=== PATIENT | male | born 1940 | race Caucasian/White ===

== ENCOUNTER 2017-08-17 14:21 | Observation (INO) | payer MEDICARE, OTHER ==
[~2017-08-17] VITALS: Ht 175.3 cm; Wt 96.5 kg
[2017-08-17] VITALS (7 sets, daily range): BP systolic 149–174; BP diastolic 69–88; PULSE 49–65; RESP 16–20; TEMP 97.6–98.5; O2SAT 97–100
[~2017-08-17 14:21] MED LIST: ADVI200T16 PO; AMLO2.5T PO; ATOR10TA PO; BAYE325T3 PO; CALC-131 PO; DIOV320T PO; HYDR12.56 PO; MULT1TAB PO; OMEG5CAP PO; POTA595T2 PO; SYNT50TA PO
--- NOTE | 2017-08-17 14:53 | PD ---
HPI Chief Complaint: Dizziness Time Seen by Provider: 14:33 Travel History International Travel<30 days: No Contact w/Intl Traveler<30days: No Traveled to known affect area: No History of Present Illness HPI 77-year-old male says he had an episode about an hour ago where he had a sudden onset of severe lightheadedness. He said he had a loss of balance and was not able to walk at that time. He still feels a bit lightheaded. He does have a history of intermittent atrial fibrillation. He is on Eliquis twice daily. He had an ablation 5 years ago but apparently still has intermittent atrial fibrillation. He is not having a headache. He does have some trouble with his ears. He sometimes uses hearing aids. He does have a history of hypertension and is on amlodipine. He is also on levothyroxine and Lipitor. There has not been any recent change in his medication. He did not have any chest pain or palpitations. He says that his heart rate during the episode was about 56. He did walk to a neighbor's house to get a ride here and says he was very unsteady and had to take very short steps PFSH Past Medical History Hx Anticoagulant Therapy: Yes (ELIQUIS) Arthritis: Yes (BIG LEFT TOE) Asthma: No Autoimmune Disease: No Blood Disorders: No Anxiety: No Depression: No Heart Rhythm Problems: Yes (ATRIAL FIB) Cancer: No Cardiovascular Problems: Yes (IRREGULAR HEARTBEAT, ) High Cholesterol: Yes Chemotherapy: No Chest Pain: No Congestive Heart Failure: No COPD: No Cerebrovascular Accident: No Diabetes: Yes (PRE) Patient Takes Glucophage: No Diminished Hearing: No Endocrine: No Gastrointestinal Disorders: No GERD: No Glaucoma: No Genitourinary: No Headaches: No Hepatitis: No Hiatal Hernia: No Hypertension: Yes Immune Disorder: No Kidney Stones: No Musculoskeletal: Yes Neurologic: No Psychiatric: No Reproductive: No Respiratory: No Migraines: No Myocardial Infarction: No Radiation Therapy: No Renal Failure: No Seizures: No Sickle Cell Disease: No Sleep Apnea: No Thyroid Disease: Yes Ulcer: No Influenza Vaccination: Yes Past Surgical History Abdominal Surgery: No AICD: No Appendectomy: No Arteriovenous Shunt: No Cardiac Surgery: Yes (ablation) Cholecystectomy: No Ear Surgery: No Endocrine Surgery: No Eye Surgery: Yes (BILATERAL CATARACTS) Genitourinary Surgery: No Gynecologic Surgery: No Insulin Pump: No Joint Replacement: No Oral Surgery: No Pacemaker: No Thoracic Surgery: No Other Surgery: Yes Social History Alcohol Use: Yes (WINE) Tobacco Use: No Substance Use: No Allergies-Medications (Allergen,Severity, Reaction): Coded Allergies: No Known Allergies (Verified Adverse Reaction, Unknown, 08/17/17) Reported Meds & Prescriptions Reported Meds & Active Scripts Active Reported Calcium + D & K (Calcium-Vitamins D & K) 500-1,000-40 Mg-Unit-Mcg Chew 1 Tab CHEW Fish Oil 1000 mg (Spencer-3 Fatty Acids) 300 Mg-1,000 Mg Cap 1 Cap PO DAILY Levothyroxine (Levothyroxine Sodium) 50 Mcg Tab 50 Mcg PO DAILY Atorvastatin (Atorvastatin Calcium) 10 Mg Tab 10 Mg PO HS Valsartan 320 Mg Tab 320 Mg PO DAILY Eliquis (Apixaban) 5 Mg Tab 5 Mg PO BID Hydrochlorothiazide 25 Mg Tab 25 Mg PO DAILY Amlodipine (Amlodipine Besylate) 10 Mg Tab 10 Mg PO DAILY Review of Systems General / Constitutional: No: Fever, Chills Eyes: No: Diploplia HENT: No: Headaches Cardiovascular: Positive: Irregular Rhythm, No: Chest Pain or Discomfort Respiratory: No: Shortness of Breath Gastrointestinal: Positive: Nausea, No: Vomiting Genitourinary: No: Urgency, Frequency Musculoskeletal: No: Myalgias Skin: No Rash Neurologic: Positive: Weakness, Dizziness, No: Syncope Psychiatric: No: Anxiety, Depression Hematologic/Lymphatic: No: Easy Bruising Physical Exam Narrative GENERAL: Well-developed male SKIN: Focused skin assessment warm/dry. HEAD: Atraumatic. Normocephalic. EYES: Pupils equal and round. No scleral icterus. No injection or drainage. ENT: No nasal bleeding or discharge. Mucous membranes pink and moist. NECK: Trachea midline. No JVD. CARDIOVASCULAR: Regular rate and rhythm. No murmur appreciated. RESPIRATORY: No accessory muscle use. Clear to auscultation. Breath sounds equal bilaterally. GASTROINTESTINAL: Abdomen soft, non-tender, nondistended. Hepatic and splenic margins not palpable. MUSCULOSKELETAL: No obvious deformities. No clubbing. No cyanosis. No edema. NEUROLOGICAL: Awake and alert. No obvious cranial nerve deficits. Motor grossly within normal limits. Normal speech. He is left t-handed. Finger to nose is slightly clumsy on the right PSYCHIATRIC: Appropriate mood and affect; insight and judgment normal. Data Data Last Documented VS Vital Signs Date Time Temp Pulse Resp B/P (MAP) Pulse Ox O2 Delivery O2 Flow Rate FiO2 08/17/17 15:22 56 16 153/80 (104) 61 16 158/83 (108) 67 16 174/82 (112) 08/17/17 14:36 97.6 97 Orders Orders Electrocardiogram (08/17/17 14:48) Complete Blood Count With Diff (08/17/17 14:48) Comprehensive Metabolic Panel (08/17/17 14:48) Troponin I (08/17/17 14:48) Magnesium (Mg) (08/17/17 14:48) Mri Brain W/O Contrast (08/17/17 14:48) Orthostatic Vital Signs (08/17/17 14:49) Sodium Chlor 0.9% 1000 Ml Inj (Ns 1000 M (08/17/17 15:26) Labs Laboratory Tests Test 08/17/17 15:10 White Blood Count 4.8 TH/MM3 Red Blood Count 4.43 MIL/MM3 Hemoglobin 13.6 GM/DL Hematocrit 40.3 % Mean Corpuscular Volume 91.0 FL Mean Corpuscular Hemoglobin 30.8 PG Mean Corpuscular Hemoglobin Concent 33.8 % Red Cell Distribution Width 13.1 % Platelet Count 231 TH/MM3 Mean Platelet Volume 7.9 FL Neutrophils (%) (Auto) 59.8 % Lymphocytes (%) (Auto) 27.0 % Monocytes (%) (Auto) 11.2 % Eosinophils (%) (Auto) 1.4 % Basophils (%) (Auto) 0.6 % Neutrophils # (Auto) 2.9 TH/MM3 Lymphocytes # (Auto) 1.3 TH/MM3 Monocytes # (Auto) 0.5 TH/MM3 Eosinophils # (Auto) 0.1 TH/MM3 Basophils # (Auto) 0.0 TH/MM3 CBC Comment DIFF FINAL Differential Comment Blood Urea Nitrogen 18 MG/DL Creatinine 0.96 MG/DL Random Glucose 106 MG/DL Albumin 3.8 GM/DL Calcium Level 9.0 MG/DL Magnesium Level 2.1 MG/DL Aspartate Amino Transf (AST/SGOT) 15 U/L Alanine Aminotransferase (ALT/SGPT) 21 U/L Sodium Level 139 MEQ/L Potassium Level 3.6 MEQ/L Chloride Level 103 MEQ/L Carbon Dioxide Level 31.3 MEQ/L Anion Gap 5 MEQ/L Estimat Glomerular Filtration Rate 76 ML/MIN [facility] Medical Decision Making Medical Screen Exam Complete: Yes Emergency Medical Condition: Yes Medical Record Reviewed: Yes Differential Diagnosis Differential includes vertigo, dysequilibrium, cva Narrative Course Lab work, ekg and mri have been ordered. Dispositon will be determined by oncoming physician. Luis Ludwig MD Aug 17, 2017 14:53
[2017-08-17 15:21] LABS: AUTOMATED NEUTROPHIL # 2.9 TH/MM3 (1.8-7.7); BASOPHIL % 0.6 % (0.0-2.0); EOSINOPHIL # 0.1 TH/MM3 (0-0.4); EOSINOPHIL % 1.4 % (0.0-4.0); HEMATOCRIT 40.3 % (39.0-51.0); HEMOGLOBIN 13.6 GM/DL (13.0-17.0); LYMPHOCYTE # 1.3 TH/MM3 (1.0-4.8); MEAN CORPUSCULAR HEMOGLOBIN 30.8 PG (27.0-34.0); MEAN CORPUSCULAR HGB CONC 33.8 % (32.0-36.0); MEAN PLATELET VOLUME 7.9 FL (7.0-11.0); MONO % 11.2 % (0.0-8.0); MONOCYTE # 0.5 TH/MM3 (0-0.9); NEUT % 59.8 % (16.0-70.0); PLATELET COUNT 231 TH/MM3 (150-450); RED BLOOD COUNT 4.43 MIL/MM3 (4.50-5.90); RED CELL DISTRIBUTION WIDTH 13.1 % (11.6-17.2); WHITE BLOOD COUNT 4.8 TH/MM3 (4.0-11.0)
[2017-08-17] MEDS ORDERED: FISH100020 PO (15:23)
[2017-08-17] MEDS ORDERED: HYDR25TA5 PO (15:23)
[2017-08-17] MEDS ORDERED: APIX5TAB PO (15:23)
[2017-08-17] MEDS ORDERED: LEVO50TA4 PO (15:23)
[2017-08-17] MEDS ORDERED: CALCCHW25 CHEW (15:23)
[2017-08-17] MEDS ORDERED: VALS1TAB70 PO (15:23)
[2017-08-17] MEDS ORDERED: ATOR10TA15 PO (15:23)
[2017-08-17] MEDS ORDERED: AMLO10TA2 PO (15:23)
[2017-08-17 15:25] LABS: CHLORIDE 103 MEQ/L (98-107); SODIUM (NA) 139 MEQ/L (136-145)
--- NOTE | 2017-08-17 15:25 | PD ---
Physical Exam Date Seen by Provider: Aug 17, 2017 Data Data Last Documented VS Vital Signs Date Time Temp Pulse Resp B/P (MAP) Pulse Ox O2 Delivery O2 Flow Rate FiO2 08/17/17 17:39 60 16 149/78 (101) 98 Room Air 08/17/17 14:36 97.6 Orders Orders Electrocardiogram (08/17/17 14:48) Complete Blood Count With Diff (08/17/17 14:48) Comprehensive Metabolic Panel (08/17/17 14:48) Troponin I (08/17/17 14:48) Magnesium (Mg) (08/17/17 14:48) Mri Brain W/O Contrast (08/17/17 14:48) Orthostatic Vital Signs (08/17/17 14:49) Sodium Chlor 0.9% 1000 Ml Inj (Ns 1000 M (08/17/17 15:26) Consult Cardiology (08/17/17 ) Aspirin Chew (Aspirin Chew) (08/17/17 18:00) Admit Order (Ed Use Only) (08/17/17 18:04) Npo After Midnight W/ Po Meds (08/17/17 Dinner) Consult Neurology (08/17/17 ) Labs Laboratory Tests Test 08/17/17 15:10 White Blood Count 4.8 TH/MM3 Red Blood Count 4.43 MIL/MM3 Hemoglobin 13.6 GM/DL Hematocrit 40.3 % Mean Corpuscular Volume 91.0 FL Mean Corpuscular Hemoglobin 30.8 PG Mean Corpuscular Hemoglobin Concent 33.8 % Red Cell Distribution Width 13.1 % Platelet Count 231 TH/MM3 Mean Platelet Volume 7.9 FL Neutrophils (%) (Auto) 59.8 % Lymphocytes (%) (Auto) 27.0 % Monocytes (%) (Auto) 11.2 % Eosinophils (%) (Auto) 1.4 % Basophils (%) (Auto) 0.6 % Neutrophils # (Auto) 2.9 TH/MM3 Lymphocytes # (Auto) 1.3 TH/MM3 Monocytes # (Auto) 0.5 TH/MM3 Eosinophils # (Auto) 0.1 TH/MM3 Basophils # (Auto) 0.0 TH/MM3 CBC Comment DIFF FINAL Differential Comment Blood Urea Nitrogen 18 MG/DL Creatinine 0.96 MG/DL Random Glucose 106 MG/DL Total Protein 7.5 GM/DL Albumin 3.8 GM/DL Calcium Level 9.0 MG/DL Magnesium Level 2.1 MG/DL Alkaline Phosphatase 83 U/L Aspartate Amino Transf (AST/SGOT) 15 U/L Alanine Aminotransferase (ALT/SGPT) 21 U/L Total Bilirubin 0.6 MG/DL Sodium Level 139 MEQ/L Potassium Level 3.6 MEQ/L Chloride Level 103 MEQ/L Carbon Dioxide Level 31.3 MEQ/L Anion Gap 5 MEQ/L Estimat Glomerular Filtration Rate 76 ML/MIN Troponin I 0.12 NG/ML [facility] Medical Record Reviewed: Yes Supervised Visit with PANKAJ: No Interpretation(s) EKG at 1500: Afib at 54bpm, qt/qtc: 526/511, no acute changes Vital Signs Date Time Temp Pulse Resp B/P (MAP) Pulse Ox O2 Delivery O2 Flow Rate FiO2 08/17/17 15:22 56 16 153/80 (104) 61 16 158/83 (108) 67 16 174/82 (112) 08/17/17 14:36 97.6 65 16 159/78 (105) 97 Differential Diagnosis Orthostatic hypotension, vertigo, CVA, electrolyte abnormality Narrative Course I received patient in sign out, please see previous provider's chart for full hpi and work up of patient Patient currently pending MRI of brain Patient is a 77-year-old male with history of hypertension, prediabetes, hypothyroidism, atrial fibrillation currently taking Eliquis, presents the emergency room with complaints of sudden onset lightheadedness. One hour prior to presentation to the emergency room, patient reports that he felt lightheaded , reports that he had gait imbalance and was unable to ambulate due to this. Patient reports that this has never happened in the past. He did note that he his HR was 56 during this event. He still feels lightheaded and dizzy at this time. He does take amlodipine for his hypertension, Lipitor as well as levothyroxine. Patient with no chest pain or shortness of breath, patient currently pending MRI of the brain. Laboratory Tests Test 08/17/17 15:10 White Blood Count 4.8 TH/MM3 (4.0-11.0) Red Blood Count 4.43 MIL/MM3 (4.50-5.90) Hemoglobin 13.6 GM/DL (13.0-17.0) Hematocrit 40.3 % (39.0-51.0) Mean Corpuscular Volume 91.0 FL (80.0-100.0) Mean Corpuscular Hemoglobin 30.8 PG (27.0-34.0) Mean Corpuscular Hemoglobin Concent 33.8 % (32.0-36.0) Red Cell Distribution Width 13.1 % (11.6-17.2) Platelet Count 231 TH/MM3 (150-450) Mean Platelet Volume 7.9 FL (7.0-11.0) Neutrophils (%) (Auto) 59.8 % (16.0-70.0) Lymphocytes (%) (Auto) 27.0 % (9.0-44.0) Monocytes (%) (Auto) 11.2 % (0.0-8.0) Eosinophils (%) (Auto) 1.4 % (0.0-4.0) Basophils (%) (Auto) 0.6 % (0.0-2.0) Neutrophils # (Auto) 2.9 TH/MM3 (1.8-7.7) Lymphocytes # (Auto) 1.3 TH/MM3 (1.0-4.8) Monocytes # (Auto) 0.5 TH/MM3 (0-0.9) Eosinophils # (Auto) 0.1 TH/MM3 (0-0.4) Basophils # (Auto) 0.0 TH/MM3 (0-0.2) CBC Comment DIFF FINAL Differential Comment Blood Urea Nitrogen 18 MG/DL (7-18) Creatinine 0.96 MG/DL (0.60-1.30) Random Glucose 106 MG/DL (74-106) Total Protein 7.5 GM/DL (6.4-8.2) Albumin 3.8 GM/DL (3.4-5.0) Calcium Level 9.0 MG/DL (8.5-10.1) Magnesium Level 2.1 MG/DL (1.5-2.5) Alkaline Phosphatase 83 U/L (45-117) Aspartate Amino Transf (AST/SGOT) 15 U/L (15-37) Alanine Aminotransferase (ALT/SGPT) 21 U/L (12-78) Total Bilirubin 0.6 MG/DL (0.2-1.0) Sodium Level 139 MEQ/L (136-145) Potassium Level 3.6 MEQ/L (3.5-5.1) Chloride Level 103 MEQ/L (98-107) Carbon Dioxide Level 31.3 MEQ/L (21.0-32.0) Anion Gap 5 MEQ/L (5-15) Estimat Glomerular Filtration Rate 76 ML/MIN (>89) Troponin I 0.12 NG/ML (0.02-0.05) Patient's troponin is 0.12 which is elevated -patient will require serial troponins as well as observation to the hospital for this. Case reviewed with Dr. Casey Douglass, requests that I review case with Dr. Coelho , pt's communications intern Case reviewed with Dr. Coelho, will make patient NPO, patient will require neuro consult, will transfer to [facility] for possible cardiac catheterization Diagnosis Primary Impression: Dizziness Additional Impression: NSTEMI (non-ST elevation myocardial infarction) Admitting Information Admitting Physician Requests: Observation Clara García DO Aug 17, 2017 15:25
[2017-08-17] MEDS ORDERED: SODIUM CHLOR 0.9% 1000 ML INJ 1,000 ML IV SCH (15:26)
[2017-08-17 15:32] LABS: ALBUMIN 3.8 GM/DL (3.4-5.0); BICARBONATE 31.3 MEQ/L (21.0-32.0); GLUCOSE,RANDOM 106 MG/DL (74-106); MAGNESIUM 2.1 MG/DL (1.5-2.5)
[2017-08-17 15:33] LABS: BLOOD UREA NITROGEN 18 MG/DL (7-18)
[2017-08-17 15:36] LABS: ALT (GPT) 21 U/L (12-78); AST (GOT) 15 U/L (15-37); CREATININE 0.96 MG/DL (0.60-1.30); GLOMERULAR FILTRATION RATE 76 ML/MIN (>89)
[2017-08-17 15:37] LABS: TOTAL BILIRUBIN ADULT 0.6 MG/DL (0.2-1.0); TOTAL PROTEIN 7.5 GM/DL (6.4-8.2)
[2017-08-17 15:38] LABS: ALKALINE PHOSPHATASE 83 U/L (45-117)
[2017-08-17 15:41] LABS: TROPONIN I 0.12 NG/ML (0.02-0.05)
--- NOTE | 2017-08-17 17:23 | RADRPT ---
EXAM DATE/TIME: 08/17/2017 16:53 [facility] COMPARISON: No previous studies available for comparison. INDICATIONS : CVA. Lightheaded and dizziness with nausea. MEDICAL HISTORY : Hypertension. Atrial fibrillation. SURGICAL HISTORY : Ablation. ENCOUNTER: Initial ACUITY: 1 day PAIN SCORE: 0/10 LOCATION: Head. TECHNIQUE: Multiplanar, multisequence MRI of the brain was performed without contrast. FINDINGS: CEREBRUM: Moderate diffuse or v. The ventricles are normal for degree of atrophy. No evidence of midline shift, mass lesion, hemorrhage or acute infarction. No extraaxial fluid collections are see n. The pituitary gland and suprasellar cistern are normal in configuration. WHITE MATTER: Mild periventricular white matter T2 prolongation. POSTERIOR FOSSA: The cerebellum and brainstem are intact. The 4th ventricle is midline. The cere bellopontine angle is unremarkable. The cerebellar tonsils are normal in position. DIFFUSION IMAGING: No focal areas of restricted diffusion are seen. No evidence of acute infarct ion. EXTRACRANIAL: The visualized portions of the orbits and paranasal sinuses are unremarkable. CONCLUSION: 1. Senescent changes with mild periventricular small vessel ischemic white matter demyelination. 2. No acute abnormality. Specifically, no acute infarction as questioned. Franklyn Duong MD on August 17, 2017 at 17:17 Board Certified Radiologist. This report was verified electronically.
[2017-08-17] MEDS ORDERED: ASPIRIN 81 MG CHEW TAB PO ONE (18:00)
--- NOTE | 2017-08-17 21:03 | HHI.HP ---
HPI Service [facility] Hospitalists Primary Care Physician Gisela Keller MD Admission Diagnosis NSTEMI Chief Complaint: Lightheadedness, unsteady gait Travel History International Travel<30 Days: No Contact w/Intl Traveler <30 Da: No Traveled to Known Affected Are: No History of Present Illness Patient is a 77-year-old male with history of hypertension, prediabetes, hypothyroidism, atrial fibrillation who is currently taking Eliquis, presents the emergency room with complaints of sudden onset lightheadedness. One to 2 hours prior to presentation to the emergency room, patient reports that he felt lightheaded, reports that he had gait imbalance and was unable to ambulate due to this. Patient reports that this has never happened in the past however on further review he has had poor gait/ataxia for over a year. He reports that his gait instability is different than the lightheadedness he felt earlier today. He did note that his HR was 56 during the event earlier today. He does take amlodipine for his hypertension, Lipitor as well as levothyroxine chronically. Denies any recent new medication. Patient with no chest pain or shortness of breath. MRI of the brain done earlier today revealed no acute abnormalities however a troponin was drawn was slightly elevated at 0.12. It is again noted the patient has no chest pain or shortness of breath. 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 He reports that he is back to his baseline and does not feel lightheaded now. He still feels somewhat unsteady with any gait attempted but this is not new. He reportedly has not seen a neurologist regarding his chronic ataxia. Review of Systems Constitutional: COMPLAINS OF: Dizziness, DENIES: Diaphoretic episodes, Fatigue , Fever, Weight gain, Weight loss, Chills, Change in appetite, Night Sweats Endocrine: DENIES: Heat/cold intolerance, Polydipsia, Polyuria, Polyphagia Eyes: DENIES: Blurred vision, Diplopia, Eye inflammation, Eye pain, Vision loss , Photosensitivity, Double Vision Ears, nose, mouth, throat: COMPLAINS OF: Hearing loss, DENIES: Tinnitus, Vertigo, Nasal discharge, Oral lesions, Throat pain, Hoarseness, Ear Pain, Running Nose, Epistaxis, Sinus Pain, Toothache, Odynophagia Respiratory: DENIES: Apneas, Cough, Snoring, Wheezing, Hemoptysis, Sputum production, Shortness of breath Cardiovascular: DENIES: Chest pain, Palpitations, Syncope, Dyspnea on Exertion , PND, Lower Extremity Edema, Orthopnea, Claudication Gastrointestinal: DENIES: Abdominal pain, Black stools, Bloody stools, BRB per rectum, Constipation, Diarrhea, GERD, Nausea, Reflux, Vomiting, Difficulty Swallowing, Anorexia, See HPI Musculoskeletal: COMPLAINS OF: Joint pain Integumentary: DENIES: Abnormal pigmentation, Nail changes, Pruritus, Rash Hematologic/lymphatic: COMPLAINS OF: Bruising, DENIES: Lymphadenopathy Immunologic/allergic: DENIES: Eczema, Urticaria Neurologic: COMPLAINS OF: Abnormal gait, Poor Balance, DENIES: Headache, Localized weakness, Paresthesias, Seizures, Speech Problems, Tremor Psychiatric: COMPLAINS OF: Anxiety, DENIES: Confusion, Mood changes, Depression , Hallucinations, Agitation, Suicidal Ideation, Homicidal Ideation, Delusions, History of Bipolar, History of Schizophrenia Past Family Social History Past Medical History Hypertension Atrial fibrillation Prediabetes Decreased auditory function Past Surgical History Ablation procedure for atrial fibrillation Colonoscopies x2 Reported Medications Calcium + D & K (Calcium-Vitamins D & K) 500-1,000-40 Mg-Unit-Mcg Chew 1 Tab CHEW Fish Oil 1000 mg ([place]-3 Fatty Acids) 300 Mg-1,000 Mg Cap 1 Cap PO DAILY Levothyroxine (Levothyroxine Sodium) 50 Mcg Tab 50 Mcg PO DAILY Atorvastatin (Atorvastatin Calcium) 10 Mg Tab 10 Mg PO HS Valsartan 320 Mg Tab 320 Mg PO DAILY Eliquis (Apixaban) 5 Mg Tab 5 Mg PO BID Hydrochlorothiazide 25 Mg Tab 25 Mg PO DAILY Amlodipine (Amlodipine Besylate) 10 Mg Tab 10 Mg PO DAILY Allergies: Coded Allergies: No Known Allergies (Verified Adverse Reaction, Unknown, 08/17/17) Family History Mother at age 97 Father at age 57 due to complications of gallbladder surgery No known heart disease in the family per his report Social History Lives with his of 34 years Originally from [facility] 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 No tobacco in 40 years; prior to that smoked one half pack per days for 20 years Drinks one glass of wine approximately every other day Denies illicit drug use Physical Exam Vital Signs Vital Signs Date Time Temp Pulse Resp B/P (MAP) Pulse Ox O2 Delivery O2 Flow Rate FiO2 08/17/17 17:39 60 16 149/78 (101) 98 Room Air 08/17/17 16:24 58 18 151/71 (97) 97 Room Air 08/17/17 15:48 60 18 153/88 (109) 97 Room Air 08/17/17 15:22 56 16 153/80 (104) 61 16 158/83 (108) 67 16 174/82 (112) 08/17/17 14:36 97.6 65 16 159/78 (105) 97 Physical Exam GENERAL: This is a well-nourished, well-developed patient, in no apparent distress. Appears younger than his stated age. Athletic build. SKIN: A few small areas of purpura on forearms. Cool and dry. HEAD: Atraumatic. Normocephalic. No temporal or scalp tenderness. EYES: Pupils equal round and reactive. Extraocular motions intact. No scleral icterus. No injection or drainage. ENT: Nose without bleeding, purulent drainage or septal hematoma. Airway patent. NECK: Trachea midline. No JVD or lymphadenopathy. Supple, nontender, no meningeal signs. CARDIOVASCULAR: Regular rate and rhythm without murmurs, gallops, or rubs. Borderline bradycardic with rate in upper 50s to low 60s. RESPIRATORY: Clear to auscultation. Breath sounds equal bilaterally. No wheezes , rales, or rhonchi. GASTROINTESTINAL: Abdomen soft, non-tender, nondistended. No hepato-splenomegaly , or palpable masses. No guarding. MUSCULOSKELETAL: Extremities without clubbing, cyanosis, or edema. No joint tenderness, effusion, or edema noted. No calf tenderness. NEUROLOGICAL: Awake and alert. Cranial nerves II through XII intact. Motor and sensory grossly within normal limits. Five out of 5 muscle strength in all muscle groups. Normal speech. Did not attempt to walk patient in the ER due to his report of prolonged ataxia. Laboratory Laboratory Tests Test 08/17/17 15:10 White Blood Count 4.8 Red Blood Count 4.43 Hemoglobin 13.6 Hematocrit 40.3 Mean Corpuscular Volume 91.0 Mean Corpuscular Hemoglobin 30.8 Mean Corpuscular Hemoglobin Concent 33.8 Red Cell Distribution Width 13.1 Platelet Count 231 Mean Platelet Volume 7.9 Neutrophils (%) (Auto) 59.8 Lymphocytes (%) (Auto) 27.0 Monocytes (%) (Auto) 11.2 Eosinophils (%) (Auto) 1.4 Basophils (%) (Auto) 0.6 Neutrophils # (Auto) 2.9 Lymphocytes # (Auto) 1.3 Monocytes # (Auto) 0.5 Eosinophils # (Auto) 0.1 Basophils # (Auto) 0.0 CBC Comment DIFF FINAL Differential Comment Blood Urea Nitrogen 18 Creatinine 0.96 Random Glucose 106 Total Protein 7.5 Albumin 3.8 Calcium Level 9.0 Magnesium Level 2.1 Alkaline Phosphatase 83 Aspartate Amino Transf (AST/SGOT) 15 Alanine Aminotransferase (ALT/SGPT) 21 Total Bilirubin 0.6 Sodium Level 139 Potassium Level 3.6 Chloride Level 103 Carbon Dioxide Level 31.3 Anion Gap 5 Estimat Glomerular Filtration Rate 76 Troponin I 0.12 Result Diagram: 08/17/17 1510 08/17/17 1510 Imaging Last 72 hours Impressions Brain MRI 08/17/17 1448 Signed Impressions: Service Date/Time: August 16:53 - CONCLUSION: 1. Senescent changes with mild periventricular small vessel ischemic white matter demyelination. 2. No acute abnormality. Specifically, no acute infarction as questioned. MD Butch Curiel VTE Risk Assessment Caprini VTE Risk Assessment: Mod/High Risk (score >= 2) Caprini Risk Assessment Model Point Value = 1 Point Value = 2 Point Value = 3 Point Value = 5 Age 41-60 Minor surgery BMI > 25 kg/m2 Swollen legs Varicose veins or History of unexplained or recurrent spontaneous Oral contraceptives or hormone replacement Sepsis (< 1 month) Serious lung disease, including pneumonia (< 1 month) Abnormal pulmonary function Acute myocardial infarction Congestive heart failure (< 1 month) History of inflammatory bowel disease Medical patient at bed rest Age 61-74 Arthroscopic surgery Major open surgery (> 45 min) Laparoscopic surgery (> 45 min) Malignancy Confined to bed (> 72 hours) Immobilizing plaster cast Central venous access Age >= 75 History of VTE Family history of VTE Factor V Leiden Prothrombin [id number] Lupus anticoagulant Anticardiolipin antibodies Elevated serum homocysteine Heparin-induced thrombocytopenia Other congenital or acquired thrombophilia Stroke (< 1 month) Elective arthroplasty Hip, pelvis, or leg fracture Acute spinal cord injury (< 1 month) Prophylaxis Regimen Total Risk Factor Score Risk Level Prophylaxis Regimen 0-1 Low Early ambulation 2 Moderate Order ONE of the following: *Sequential Compression Device (SCD) *Heparin 5000 units SQ BID 3-4 Higher Order ONE of the following medications: *Heparin 5000 units SQ TID *Enoxaparin/Lovenox 40 mg SQ daily (WT < 150 kg, CrCl > 30 mL/min) *Enoxaparin/Lovenox 30 mg SQ daily (WT < 150 kg, CrCl > 10-29 mL/min) *Enoxaparin/Lovenox 30 mg SQ BID (WT < 150 kg, CrCl > 30 mL/min) AND/OR *Sequential Compression Device (SCD) 5 or more Highest Order ONE of the following medications: *Heparin 5000 units SQ TID (Preferred with Epidurals) *Enoxaparin/Lovenox 40 mg SQ daily (WT < 150 kg, CrCl > 30 mL/min) *Enoxaparin/Lovenox 30 mg SQ daily (WT < 150 kg, CrCl > 10-29 mL/min) *Enoxaparin/Lovenox 30 mg SQ BID (WT < 150 kg, CrCl > 30 mL/min) AND *Sequential Compression Device (SCD) Assessment and Plan Problem List: (1) Elevated troponin I level ICD Codes: R74.8 - Abnormal levels of other serum enzymes Status: Acute Plan: Questionable etiology. No specific cardiac complaints. We will continue serial troponins and CK as well as EKGs. Patient's wood preparation supervisor has been consulted and case was discussed with Dr. Beck Coelho by ER provider per her report. Dr. Coelho requests patient be transferred to [facility] for possible intervention in the next 24-36 hours. (2) Ataxia ICD Codes: R27.0 - Ataxia, unspecified Status: Chronic Plan: Patient's lightheadedness today is different than his chronic ataxia per his report. We will check ultrasound regarding his lightheadedness which may have been associated with bradycardia. We will have neurology see the patient regarding the chronic ataxic complaints. (3) Hypertension ICD Codes: I10 - Essential (primary) hypertension Status: Chronic Plan: Continue valsartan. BP slightly elevated. We will continue to follow. (4) Atrial fibrillation ICD Codes: I48.91 - Unspecified atrial fibrillation Plan: We will hold Eliquis for now in case vascular intervention indicated. Rate is controlled. Dr. Beck Coelho consulted. (5) Prediabetes ICD Codes: R73.03 - Prediabetes Status: Chronic Plan: Will place on diabetic diet once patient taking oral intake. Patient reports that his blood sugars are typically in the low 100s-120s range. Code Status full Discussed Condition With Patient and ER provider. Problem Qualifiers (1) Hypertension: Qualified Codes: I10 - Essential (primary) hypertension (2) Atrial fibrillation: Qualified Codes: I48.0 - Paroxysmal atrial fibrillation Kristian Rubio MD PhD Aug 17, 2017 21:03
--- NOTE | 2017-08-17 22:36 | RADRPT ---
EXAM DATE/TIME: 08/17/2017 22:21 [place] COMPARISON: No previous studies available for comparison. INDICATIONS : Chest discomfort and lightheadedness. MEDICAL HISTORY : Hypertension. Atrial fibrillation. SURGICAL HISTORY : Ablation. ENCOUNTER: Initial ACUITY: 1 day PAIN SCORE: 2/10 LOCATION: Bilateral chest FINDINGS: A single view of the chest demonstrates the lungs to be symmetrically aerated without evidence of mas s, infiltrate or effusion. The heart size is mildly prominent with no perihilar edema. Mild atheroscl erotic calcifications are present in the aorta. Osseous structures are intact. CONCLUSION: Mild cardiomegaly with no acute disease. Shon Reese MD on August 17, 2017 at 22:32 Board Certified Radiologist. This report was verified electronically.
[2017-08-17] MEDS: ATORVASTATIN 10 MG TAB PO SCH (23:35)
[2017-08-18] VITALS (20 sets, daily range): BP systolic 143–168; BP diastolic 58–87; PULSE 40–82; RESP 18–20; TEMP 98–98.4; O2SAT 94–98
[2017-08-18 00:04] LABS: TROPONIN I 0.11 NG/ML (0.02-0.05)
[2017-08-18] MEDS: LEVOTHYROXINE SODIUM 50 MCG TAB PO SCH (05:29)
[2017-08-18 06:15] LABS: TROPONIN I 0.11 NG/ML (0.02-0.05)
[2017-08-18] MEDS: SODIUM CHLOR 0.9% 1000 ML INJ 1,000 ML IV SCH ×2 (07:45→15:59)
[2017-08-18] MEDS ORDERED: DIAZEPAM 5 MG TAB PO SCH (07:45)
[2017-08-18] MEDS ORDERED: diphenhydrAMINE HCL 50 MG CAP PO SCH (07:45)
[2017-08-18] MEDS ORDERED: VERAPAMIL HCL 5 MG/2 ML VIAL ONE (08:22)
[2017-08-18] MEDS ORDERED: HEPARIN SODIUM - IV 10,000 UNITS/10 ML VIAL ONE (08:23)
[2017-08-18] MEDS ORDERED: NITROGLYCERIN INJ 5 ML ONE (08:23)
[2017-08-18] MEDS ORDERED: PNEUMOCOCCAL POLYVALENT INJ 25 MCG/0.5 ML SYR IM ONE (09:00)
[2017-08-18] MEDS: VALSARTAN 160 MG TAB PO SCH (09:00)
[2017-08-18] MEDS ORDERED: LIDOCAINE HCL 1% PF 30 ML VIAL ONE (09:19)
[2017-08-18] MEDS ORDERED: MIDAZOLAM HCL 2 MG/2 ML VIAL ONE (09:20)
--- NOTE | 2017-08-18 09:51 | MB ---
cc: Beck Coelho MD DATE: 08/18/2017 REASON FOR CONSULTATION: Evaluation of lightheadedness and nausea. HISTORY OF PRESENT ILLNESS: Alexandr Rodrigez is a 77-year-old man who I have been following in my office. 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 He had an ablation of his atrial fibrillation 10/07/2013. Unfortunately, this did not take and he has gone into permanent atrial fibrillation. He has had a slow ventricular rate, but not slow enough to need a pacemaker prior to now. The patient was counseled to report or present to the hospital if he had any dizziness, lightheadedness or syncope. Heart rates were quite slow enough on his Holter to justify a pacemaker. He has been evaluated for possible ischemic disease as well and had a nuclear stress test 03/08/2017. His ejection fraction was 50-55% and there were no definite stress induced defects. His last echo Doppler was 05/10/2016. He had mild left ventricular hypertrophy with an ejection fraction of 50-55%, a left atrial size of 4.9 cm and mild aortic, mitral and tricuspid regurgitation with a mild degree of aortic valve sclerosis. He has been physically able to exercise. He comes in now with complaints of lightheadedness. He has been noticing lately that occasionally at night he gets a feeling of anxiety. Monday night he had an uncomfortable night, but slept fairly well. morning he did a bunch of errands and came back to his house. He sat down at his piano, when he got up, he was extremely lightheaded. Sitting at his computer, this recurred. He also had nausea. Walking to his bedroom, he felt very, very lightheaded. He has never felt like this before. He laid in bed for a while and had about 5 minutes of nausea. He did not have any chest pain or chest tightness or chest pressure or any typical anginal symptoms, but did have some nausea. He presented to the ER. Troponin is mildly elevated. The dizziness has not recurred since he has been in the hospital, but he has been at bedrest. He has been noted to be bradycardic since admission. On telemetry on multiple occasions, his heart rate has dropped between 30 and 35 beats per minute. He has had no chest pain since being in the hospital. MEDICATIONS PRIOR TO ADMISSION: 1. Amlodipine 10 mg daily. 2. Diovan 320 mg daily. 3. Atorvastatin 10 mg daily. 4. Hydrochlorothiazide 25 mg daily. 5. Potassium supplement daily. 6. Multivitamins. 7. Fish oil. 8. Calcium. 9. He is also on Eliquis 5 mg p.o. twice a day. His last dose of Eliquis was 24 hours ago. ALLERGIES: NONE KNOWN. PAST MEDICAL HISTORY: Includes conduction system disease as described above, hypertensive heart disease, and prediabetes. PAST SURGICAL HISTORY: Includes EP procedures. He has never had a cardiac catheterization before. FAMILY HISTORY: Positive for carotid endarterectomy in his mother. 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 He spent about 2-1/2 years in the [employer]. He smoked from about age 13 to age 33. REVIEW OF SYSTEMS: He has been noticing for at least a year of some reduced equilibrium when he is on his feet. The etiology of this has not been clear. This has been discussed with his primary care doctor, Dr. Keller. PHYSICAL EXAMINATION: GENERAL: This is a robust, well-developed, well-nourished white male who does not appear to be in acute distress. VITAL SIGNS: Charted. As mentioned on telemetry, he gets markedly bradycardic with heart rates into the low 30s. HEENT: Unremarkable. NECK: Shows no JVD, no bruits. CHEST: Clear to auscultation. CARDIAC: Shows a normal PMI. First and second heart sounds are normal. Irregular rate and rhythm. There is a faint 1/6 systolic murmur. ABDOMEN: Soft, nontender, no masses or organomegaly. EXTREMITIES: Reveal no clubbing, cyanosis or edema. Pulses are intact. EKGs are showing atrial fibrillation with right bundle branch block and left anterior fascicular block with bradycardia. Of concern, his troponins are elevated. The first troponin was 0.12, second 0.11, third 1.11. Creatinine is normal at 0.96. TSH is normal at 2.44. B12 level is 473. Hematocrit is 40.3 with a normal white count. His brain MRI showed no acute abnormality. His chest x-ray shows mild cardiomegaly with no acute disease. IMPRESSION: This is a 77-year-old man with a history strongly suggestive of symptomatic bradycardia. His bradycardia is not new. We have known about it for a while. The lightheadedness with near syncope is most likely explained by a slow heart rate. He has also had nausea symptoms and has an elevated troponin. The troponin curve is flat so it is not typical of a non-ST segment elevation myocardial infarction, but it is of concern. Coronary ischemia, particularly right coronary artery ischemia, is often associated with bradycardia. RECOMMENDATIONS: I have had a long discussion with the patient with his on speaker phone. I think primarily he needs a pacemaker for bradycardia. However, with the elevated troponin and the nausea raises some question about a coronary problem in addition to bradycardia. I think the safest and best approach would be to do a diagnostic cardiac catheterization. Because he had Eliquis 24 hours, I would like to do this radially so that would minimize any risk of bleeding. If he has severe coronary disease, then I would address that first before the pacemaker. If his coronary arteries are okay or stable, then I advised going right ahead and proceeding with a VVI pacemaker. He is left handed, so I would plan to put this in his right chest. Informed consent has been obtained for a cardiac catheterization with possible pacemaker, possible intervention. We are proceeding to do this morning. Beck Coelho MD VESejal/NANCY , 09:15 AM , 09:49 AM
[2017-08-18] MEDS ORDERED: LIDOCAINE HCL 2% 50 ML VIAL ONE (10:07)
[2017-08-18] MEDS ORDERED: VANCOMYCIN 500 MG VIAL ONE (10:07)
[2017-08-18] MEDS ORDERED: VANCOMYCIN HCL 1000 MG VIAL ONE (10:07)
[2017-08-18] MEDS ORDERED: SODIUM CHLOR 0.9% 250 ML INJ 250 ML ONE (10:08)
[2017-08-18] MEDS ORDERED: ceFAZolin INJ 1,000 MG VIAL ONE (10:08)
[2017-08-18] MEDS ORDERED: PROPOFOL 200 MG/20 ML AMP ONE (10:12)
--- NOTE | 2017-08-18 10:20 | MA ---
cc: Beck Coelho MD DATE: 08/18/2017 PROCEDURES PERFORMED: 1. Right radial arterial access. 2. Coronary angiography. 3. Left heart catheterization. 4. Left ventriculography. DESCRIPTION OF PROCEDURE: The patient was brought to the cardiac catheterization lab in the fasting state. Using 1% lidocaine for local anesthesia, a Terumo Slender Sheath was easily inserted in the right radial artery. A Aubrey catheter was then used to image the left and right coronary artery. I could not cross the valve with it, so I switched to an angled pigtail catheter and easily crossed the valve for a left heart catheterization and LV-gram. The catheter was removed over the wire. The sheath was removed with a Terumo band placed with no complications. Note that the cocktail that was administered contained nitroglycerin; it did not contain heparin because he has had Eliquis 24 hours ago and it did not contain verapamil because of bradycardia. FINDINGS: I. HEMODYNAMICS: Left ventricular pressure was 161/16 with an end-diastolic pressure of 23. Aortic pressure was 172/91 with a mean of 125. There was no gradient during pullback from the left ventricle to the aorta. II. LEFT VENTRICULOGRAPHY: This was performed with hand injection. Ejection fraction appears to be about 50%. The LV is somewhat under-opacified but adequate. III. CORONARY ANGIOGRAPHY: Coronary circulation is right dominant. All 3 coronary arteries appear large and normal with the exception of a very slight degree of irregularity of the right coronary artery. IMPRESSION: The elevated troponin is not due to coronary ischemia. PLAN: We will proceed with a VVI pacemaker via the right chest. MD RIZWANA Juarez/BRIDGET , 10:05 AM , 10:19 AM
--- NOTE | 2017-08-18 10:35 | CATHPROC ---
[facility] HIS Report Study Information Study Number Admission Scheduled Start Study Start [id number] Aug 17 2017 6:06PM 08/18/2017 Aug 18 2017 9:09AM [place] [facility] Cardiac Catheterization Admit Source Facility Department Emergency department [facility] Physician and Clinical Staff Initial Beck Raymond Metal Technician Rosalva Ellis,DALIA Recorder Essie Jha,BASKETBALL SCOUT TECH2 Scrub Digna Newell,RT(R) TECH2 Procedures Performed Procedure Location (Site) Vessel Name Coronary Angiograms LCA Left Coronary Coronary Angiograms RCA Right Coronary L Heart Cath LV Gram-hand inj. LV LV Ventricle Equipment Time Custom Marine Canvas Fabricator Description Size Mfg Part Number Used/Scraped TRANSDUCER, TRUWAVE [id number] 09:10 BRENNER PETERSON * Used W/STOCKCOCK *[id number] *[id number] 09:10 MALLINCKRODT SYRINGE, ANGIOMAT 150ML 150ML *[id number] Used 2SUB [id number] 09:10 UpTap PACK, CCL CUSTOM * Used *[id number] 09:10 UpTap SUPPORT, ARTERIAL ADULT 94595 *[id number] Used [id number] 09:10 [employer] PACER PEN, SKIN DUAL W/ RULER * Used *[id number] BAND, RADIAL COMPRESSION TR [id number] 10:27 Abcodia 29CM Used LARGE 29 *[id number] BAND, RADIAL COMPRESSION TR [id number] 10:25 [employer] MEDICAL 24CM Used SHORT 24 *[id number] 09:10 Abcodia WIRE, EXCHANGE 260CM 3MMJ 260CM Used *[id number] 09:10 NAMIC MANIFOLD, 4 PORT * Used *[id number] 09:10 NYCOMED OMNIPAQUE, 350 MG, 100ML 100ML [id number] Used [id number] 09:10 [employer] BLANKET,WARM AIR CCL * Used *[id number] 09:10 [employer] JELCO NEEDLE 4056 *[id number] Used CATHETER, FR5 OPTITORQUE [id number] 09:42 [employer] MEDICAL FR 5 Used RADIAL TIG 4.0 *[id number] SHEATH, FR6 TRANSRADIAL [id number] 09:10 TERUM[employer] MEDICAL FR 6 Used SLENDER 10CM *[id number] History: Current Medications Medication Dosage/Unit Route Frequency Last Date/Time Taken Synthroid NORVASC LIPITOR History: Allergies Allergy Reaction No Known Allergies History: Risk Factors Family History of Hypertension Dyslipidemia Previous NH Previous Heart Failure Premature CAD Yes Yes No No No Prior Valve Prior PCI Prior CABG Surgery No No No Cerebrovascular Peripheral Artery Chronic Lung On Dialysis Diabetes Diabetes Therapy Disease Disease Disease No No No No Yes Diet History: Stress Tests Stress or Imaging Studies Performed No History: Arrhythmias Selection Items Atrial fibrillation History: Other Current Smoker Method Quit Packs a Day Years Used Pack Years No Cigarettes 40 Years Ago 1 20 20 Labs Hgb (g/dl) Hct (%) RBC (MIL/MM3) WBC (l/cumm) Platelets (thousands) 11.60-17.00 35.00-51.00 4.00-5.90 4.00-11.00 150.00-450.00 13.6 40.3 4.4 4.8 231 Glucose (mg/dl) BUN (mg/dl) Creatinine (mg/dl) BUN:Creatinine (1:x) 74.00-106.00 7.00-18.00 0.50-1.30 10.00-20.00 106 18 0.9 20 Na (meq/l) K (meq/l) Cl (meq/l) CO2 (mmol/L) Ca (mg/dl) 136.00-145.00 3.50-5.10 98.00-107.00 21.00-32.00 8.50-10.10 139 3.6 103 31.3 9 Troponin I (ng/ml) CPK (u/l) 0.02-0.05 26.00-308.00 0.11 60 Medication Medication Total Dose (Bolus/Oral) Medication Total Dosage/Unit 1% XYLOCAINE 5 mL RADIAL COCKTAIL 5 mL (Bolus) Medications (Bolus/Oral) Medication Time Given Dosage/Unit Administered By Reason 1% XYLOCAINE 08/18/2017 9:34:14 AM 5 mL Beck Coelho 5 mL 1% XYLOCAINE given in lab by Beck Coelho in Right Radial via Subcutaneous. RADIAL COCKTAIL 08/18/2017 9:40:18 AM 5 mL (Bolus) Beck Coelho 5 mL (Bolus) RADIAL COCKTAIL given in lab by Beck Coelho via Radial. Using [Solution Name]. Reason: Ntg 200mcg Medication (Drip) Medication Time Given Dosage/Unit Concentration/Unit Diluent (ml) Solution IV Solutions 08/18/2017 9:16:33 AM 0 mL (IV) 500 NaCl .9 Patient arrived on IV Solutions in Left Antecubital via Peripheral IV. Pump/Drip Flow = 20 ml/hr usin g NaCl .9. IV Solutions 08/18/2017 9:16:35 AM 50 mL (IV) 500 NaCl .9 Patient arrived on IV Solutions in Right Antecubital via Peripheral IV. Pump/Drip Flow using NaCl .9. Initial Case Assessment Cardiovascular HR NIBP Chest Pain 55 160/86 0 Circulatory - Right Pulses Dorsalis Pedis Femoral Radial 2 2 2 Scale (0,1,2,3,4,d) Circulatory - Left Pulses Dorsalis Pedis Femoral Radial 2 2 Scale (0,1,2,3,4,d) Neurological State Oriented to time-place- Alert Moves all extremities person Respiration - General Respiration Rate SpO2 (%) (B/min) 13 99 Final Case Assessment Cardiovascular HR Rhythm Chest Pain 66 afib 0 Neurological State Unresponsive Comment: Patient under general anesthesia will remain on cath table for pm implant Chronological Log Time Study Chronological Log 8:55:51 Patient arrived via Bed. 8:55:52 Patient Name, D.O.B, / Armband Verified By R.N. 8:56:55 Pre-op and post- op instructions given; patient acknowledges understanding of instructions . 9:05:56 Verbal Stimulation=2 Physical Stimulation=2 Airway=2 Respiration=2 TOTAL=8. (0=absent, 1=l imited, 2=present) 9:16:16 Anesthesia at bedside. Assumes care of patient. 9:16:18 Presedation assessment performed by [facility] RN. 9:16:20 Allens test performed on the right radial and ulnar artery. 9:16:24 Patient has been NPO for More than 6Hrs. 9:16:26 Skin Breakdown-none per patient 9:16:28 Disposable Defibrillator Pads Placed On Patient. 9:16:29 Guillermo Prominences Protected 9:16:32 A # 20 IV was noted in the Antecubital (left). Grade = patent 9:16:33 Patient arrived on IV Solutions in Left Antecubital via Peripheral IV. Pump/Drip Flow = 20 m l/hr using NaCl .9. 9:16:34 A # 20 IV was noted in the Antecubital (right). Grade = 0 9:16:35 Patient arrived on IV Solutions in Right Antecubital via Peripheral IV. Pump/Drip Flow using NaCl .9. 9:16:36 History and physical on the chart or being dictated. 9:16:44 HR=72 bpm, LZHI=182/90 mmhg, SpO2=99 %, Resp=16 B/min, Pain=0, Jerome=10, Pike=2 Assessment: Initial Case, HR=55 BPM, AMKI=777/86 mmhg, Chest Pain=0 Right Pulses: Elmer Ped=2, Femoral=2, Radial=2 9:17:27 Left Pulses: Elmer Ped=2, Femoral=2 Neurological: State=Alert, Ox3, FROST Respiration: Resp=13 B/min, SpO2=99 % 9:29:47 Pressure channel 1 zeroed. 9:29:54 Consent signed by the physician and the patient and verified by the [facility] staff. Time Out. Correct patient, correct procedure, correct physician, power injector not used, surgic al team present. Time 9:32:20 Out Concurred by MD and individual staff in procedure. 9:34:12 Case Start 9:34:14 5 mL 1% XYLOCAINE given in lab by Beck Coelho in Right Radial via Subcutaneous. 9:37:49 Access site was Radial Artery. A SHEATH, FR6 TRANSRADIAL SLENDER 10CM FR 6 was advanced into the Fem Art (right) using the Perc utaneous 9:37:50 technique. 9:40:18 5 mL (Bolus) RADIAL COCKTAIL given in lab by Beck Coelho via Radial. Using [Solution Name] . Reason: Ntg 200mcg A CATHETER, FR5 OPTITORQUE RADIAL TIG 4.0 FR 5 was advanced over a wire. OMNIPAQUE, 350 MG, 100M L 100ML 9:41:03 was used for injections. 9:42:45 Reference ECG taken 9:43:32 The LCA was injected and visualized at various angles. OMNIPAQUE, 350 MG, 100ML 100ML used. Recorded Pressure: Ao, HR=59, Condition=Condition 1 9:43:53 (Aorta) Ao 125/61/89 9:45:54 The RCA was injected and visualized at various angles. OMNIPAQUE, 350 MG, 100ML 100ML used. After removing the current catheter a PIGTAIL ANG. INFINITI CATHETER FR 5 was advanced over a WI RE, EXCHANGE 9:47:53 260CM 3MMJ 260CM. Recorded Pressure: LV, HR=58, Condition=Condition 1 9:51:00 (Left Ventricle) LV 164/8/22 9:51:16 The LV was manually injected with 10 cc's and visualized. OMNIPAQUE, 350 MG, 100ML 100ML use d. Recorded Pressure: LV, Ao, HR=59, Condition=Condition 1 9:51:30 (Left Ventricle) LV 161/16/23, (Aorta) Ao 172/91/125 9:52:32 Catheter was removed 9:52:41 Case End Assessment: Final Case, HR=66 BPM, Rhythm=afib, Chest Pain=0 9:53:04 Neurological: State=Unresponsive, Comment=Patient under general anesthesia will remain on ca th table for pm implant 9:53:43 Patient moving, waking up from general anesthesia. Radial Compression Device Used. 15 mLs of air placed in BAND, RADIAL COMPRESSION TR SHORT 24 2 4CM. Affected 9:54:13 hand 98 % O2 saturation. Puffiness noted above TR band placement. Patient remaining on tab le for ppm implant. 2nd TR band placed to assist with hemostasis. Radial Compression Device Used. 5 mLs of air placed in BAND, RADIAL COMPRESSION TR LARGE 29 29 CM. Affected 10:08:46 hand 98 % O2 saturation. 10:10:40 No case complications noted. 10:10:43 Cine recording checked. 10:11:30 A Left Heart Cath was performed. 10:11:50 NOTE: This patient is undergoing an additional procedure while still in the Cardiac Cath L ab. End Study - Contrast Media Used In Study Contrast Total Opened (mL) Total Used (mL) Total Wasted (mL) Omnipaque 50 50 0 End Study - Maximum Contrast Load Max Contrast Load (mL) 530.6 End Study - Radiation Exposure Fluoro Time (minutes) 5.4 End Study - Sheaths Sheaths Pulled By Sheath Hold Time (min) Digna Newell End Study - Patient Disposition Complications Interventional Outcome No No attempt made
[2017-08-18] MEDS ORDERED: GLYCOPYRROLATE 1 MG/5 ML SYRINGE IV PUSH ONE (12:00)
[2017-08-18] MEDS ORDERED: traMADol HCL 50 MG TAB PO PRN (12:00)
[2017-08-18] MEDS ORDERED: ACETAMINOPHEN 325 MG TAB PO PRN (12:00)
[2017-08-18] MEDS ORDERED: BACITRACIN OINT 0.9 GM PKT TOP PRN (12:00)
[2017-08-18] MEDS ORDERED: ONDANSETRON HCL 4 MG/2 ML VIAL IV ONE (12:00)
[2017-08-18] MEDS ORDERED: PROPOFOL 200 MG/20 ML AMP IV ONE (12:00)
[2017-08-18] MEDS ORDERED: ROCURONIUM INJ 50 MG/5 ML SYRINGE IV PUSH ONE (12:00)
--- NOTE | 2017-08-18 12:18 | CATHPROC ---
Patient Name: CAROLE CANELA Study #: [id number] Initial MD: Beck Coelho Date of : 1940 Study Date: 08/18/2017 Cardiac Catheterization Report 08/18/2017 12:18:31 PM Financial #: [id number] 1 of 8 Patient Name: CAROLE CANELA Study #: [id number] Initial MD: Beck Coelho Date of : 1940 Study Date: 08/18/2017 Entire Case Report Patient Information Patient Name CAROLE CANELA Date of 1940 Age 77 years Financial # [id number] Gender M AlternateID Lab Number 2 Room Number 454 Height (in) 69.0 Height (cm) 175.3 BSA 2.11 Weight (lbs) 210.1 Weight (kg) 95.5 Patient Address/Phone Number Home Address [facility] Home Phone Number [phone] [facility] [id number] Study Information Study Number Admission Scheduled Start Study Start [id number] Aug 17 2017 6:06PM 08/18/2017 Aug 18 2017 10:39AM [place] [facility] Cardiac Pacer/ICD Admit Source Facility Department Emergency department [facility] [employer] Physician and Clinical Staff Initial Beck Raymond In Flight Refueling System Repairer Rosalva Ellis RN Other Anesthesia, MAKEUP INSTRUCTOR Recorder Essie Jha RCIS TECH2 Scrub Digna Newell RT(R) TECH2 Procedures Performed Procedure Location (Site) Vessel Name Lead Insertion Venogram Subclav. Vein (Rt) Subclavian Vein 08/18/2017 12:18:31 PM Financial #: [id number] 2 of 8 Patient Name: CAROLE CANELA Study #: [id number] Initial MD: Beck Coelho Date of : 1940 Study Date: 08/18/2017 Equipment Time Onsite Case Manager Description Size Mfg Part Number Used/Scraped [id number] 10:48 MEDLINE INDUSTRIES SUTURE, STRIP PLUS 1/2" * Used *[id number] 10:48 MEDLINE PACER ADHESIVE, MASTISOL 2/3CC 2/3CC 0523-48 Used 10:48 MEDLINE PACER CONKLIN, LIMB * 2530 *[id number] Used [id number] 10:48 MEDLINE PACER PACK, PACER CUSTOM * Used *[id number] 10:48 MEDLINE PACER PEN, SKIN DUAL W/ RULER * Used *9865549 11:09 [facility] PACER SAFE SHEATH, FR7, 13CM FR 7 [id number] Used 10:44 Needle Sponge Count 2 22 Used 10:44 Needle Sponge Count 30 1 Used 10:44 Needle Sponge Count 4 4 Used 11:08 NYCOMED OMNIPAQUE, 350 MG, 50ML 50ML [id number] Used [id number] *[id number] SUTURE, 2-0 VICRYL [SH] ([id number]) SUTURE, 3-0 VICRYL [SH] ([id number]) SUTURE, 4-0 MONOCRYL [PS2] (Y496G) [id number] 10:48 [employer] [place] BLANKET,WARM AIR CCL * Used *[id number] [facility] PAD, ELECTROSURGICAL 10:48 * [id number] *[id number] Used SURGICAL GROUNDING ORANGE LEAD, CAPSURE FIX NOVUS, 4076-52CM 11:09 VITATRON MEDTRON[employer] 52CM Used 52CM *[id number] 12:14 VITATRON [employer] MONITOR, PACEMAKER\\ICD 62194 *5098009 Used PACEMAKER, ADVISA SR MRI 11:23 VITATRON [employer]TR[employer]IC VVIR [id number] Used SURESCAN [id number] 10:48 [employer]. / * Used *25699 Equipment Model, Serial, Lot Number and Expiration Data Description Model Number Serial Number Lot Number Expiration Date LEAD, CAPSURE FIX NOVUS, 52CM 4076-52cm [id number] 03-07-2019 PACEMAKER, ADVISA SR MRI A3SR01 [id number] 02-18-2018 SURESCAN [id number] Insurance Information Insurance Payor Private Health Insurance Third Libertarian Third Libertarian Number [facility] FHCMCRH[facility] 08/18/2017 12:18:31 PM Financial #: [id number] 3 of 8 Patient Name: CAROLE CANELA Study #: [id number] Initial MD: Beck Coelho Date of : 1940 Study Date: 2017 History: Current Medications Medication Dosage/Unit Route Frequency Last Date/Time Taken Synthroid NORVASC LIPITOR History: Allergies Allergy Reaction No Known Allergies History: Risk Factors Family History of Hypertension Dyslipidemia Previous [place] Previous Heart Failure Premature CAD Yes Yes No No No Prior Valve Prior PCI Prior CABG Surgery No No No Cerebrovascular Peripheral Artery Chronic Lung On Dialysis Diabetes Diabetes Therapy Disease Disease Disease No No No No Yes Diet History: Stress Tests Stress or Imaging Studies Performed No History: Arrhythmias Selection Items Atrial fibrillation History: Other Current Smoker Method Quit Packs a Day Years Used Pack Years No Cigarettes 40 Years Ago 1 20 20 Labs Hgb (g/dl) Hct (%) WBC (l/cumm) Platelets (thousands) 11.60-17.00 35.00-51.00 4.00-11.00 150.00-450.00 13.6 40.3 4.8 231 Glucose (mg/dl) BUN (mg/dl) Creatinine (mg/dl) BUN:Creatinine (1:x) 74.00-106.00 7.00-18.00 0.50-1.30 10.00-20.00 106 18 0.9 20 Na (meq/l) K (meq/l) Cl (meq/l) CO2 (mmol/L) Ca (mg/dl) 136.00-145.00 3.50-5.10 98.00-107.00 21.00-32.00 8.50-10.10 139 3.6 103 31.3 9 08/18/2017 12:18:31 PM Financial #: [id number] 4 of 8 Patient Name: CAROLE CANELA Study #: [id number] Initial MD: Beck Coelho Date of : 1940 Study Date: 08/19/19 18 Troponin I (ng/ml) CPK (u/l) CPK-MB (ng/ML) 0.02-0.05 26.00-308.00 0.50-3.60 0.11 60 Not Drawn Medication Medication Total Dose (Bolus/Oral) Medication Total Dosage/Unit 2% XYLOCAINE 50 mL Medications (Bolus/Oral) Medication Time Given Dosage/Unit Administered By Reason 2% XYLOCAINE 08/18/2017 10:53:44 AM 50 mL Beck Coelho 50 mL 2% XYLOCAINE given in lab by Beck Coelho via Subcutaneous to right upper chest. Ordered by Beck Todd. Medication (Drip) Medication Time Given Dosage/Unit Concentration/Unit Diluent (ml) Solution ANCEF 08/18/2017 10:53:20 AM 2 g 2 g ANCEF given in lab by Anesthesia, MAKEUP INSTRUCTOR in Right Antecubital via Peripheral IV. Ordered by Beck Coelho. VANCOMYCIN DRIP 08/18/2017 10:52:48 AM 1 g 1 g VANCOMYCIN DRIP given in lab by Anesthesia, MAKEUP INSTRUCTOR in Right Antecubital via Peripheral IV. Ordered by Beck Coelho. Final Case Assessment Cardiovascular HR Rhythm NIBP Chest Pain 60 paced 108/61 0 Circulatory - Right Pulses Dorsalis Pedis Femoral Radial 2 2 2 Scale (0,1,2,3,4,d) Circulatory - Left Pulses Dorsalis Pedis Femoral Radial 2 2 Scale (0,1,2,3,4,d) Respiration - General Respiration Rate (B/min) 20 08/18/2017 12:18:31 PM Financial #: [id number] 5 of 8 Patient Name: CAROLE CANELA Study #: [id number] Initial MD: Beck Coelho Date of : 1940 Study Date: 08/18/2017 Vitals Summary Pain Time HR NIBP SpO2 Resp Temp EtCO2 Apnea Jerome Pike Comment Level 11:52:30 60 108/61 98.0 22 Chronological Log Time Study Chronological Log 10:19:25 NOTE: This patient is undergoing an additional procedure while still in the Cardiac Cath La b. 10:19:34 Anesthesia at bedside. Continues care of patient. 10:19:35 Initial procedure has been completed. Beginning additional procedure. 10:19:38 Bovie ground pad applied to: left thigh 10:19:39 Disposable Defibrillator Pads Placed On Patient. 10:20:56 Guillermo Prominences Protected 10:22:15 History and physical on the chart or being dictated. 10:22:35 Table restraints applied according to hospital policy 10:39:31 2% CHLORHEXIDINE GLUCONATE WASH AND NASAL SWIPE DONE PRIOR TO PROCEDURE. 10:39:54 MD arrived. 10:40:00 Consent signed by the physician and the patient and verified by the [facility] [employer] staff. 10:40:58 Right Upper Chest Prepped Times Two and draped after a 3 min dry time. First Sponge And Instrument Count Done by Digna Newell RT(R) TECH2. 10:43:21 Hypo's: 4, Sponges: 30, Bovie/scratch: 2 Sutures: 5, Blades: 3, Instruments: 26, Syveck Patches: 0 Verified by Alan Ellis,RN Time Out. Correct patient, procedure, procedure equipment, site and side verified with physicia n present. Time 10:52:25 concurred by MD, individual staff and MAKEUP INSTRUCTOR. Time Out #2 - Consents verified, patient in correct position, all results are labled and displa yed, safety precautions 10:52:31 taken, antibiotics administered. Time out concurred by MD, individual staff and MAKEUP INSTRUCTOR in procedu re 1 g VANCOMYCIN DRIP given in lab by Anesthesia, MAKEUP INSTRUCTOR in Right Antecubital via Peripheral IV. Or dered by Meliton 10:52:48 Beck. 10:53:20 2 g ANCEF given in lab by Anesthesia, MAKEUP INSTRUCTOR in Right Antecubital via Peripheral IV. Ordered by Beck Coelho. 10:53:40 Case Start 10:53:44 50 mL 2% XYLOCAINE given in lab by Beck Coelho via Subcutaneous to right upper chest. Ord ered by Beck Coelho. 10:54:44 Surgical Incision Made. 10:55:35 A pocket was created at the R Upper Chest. 10:57:27 Reference ECG taken 11:02:15 PACU called. Spoke to Digna. 11:02:38 The Subclav. Vein (Rt) was manually injected with 15 cc's of contrast. OMNIPAQUE, 350 MG, 5 0ML 50ML used. 11:07:46 Vascular access was obtained in the Subclav. Vein (Rt). 11:07:49 Wire inserted 08/18/2017 12:18:31 PM Financial #: [id number] 6 of 8 Patient Name: CAROLE CANELA Study #: [id number] Initial MD: Beck Coelho Date of : 1940 Study Date: 08/18/2017 11:08:15 A SAFE SHEATH, FR7, 13CM FR 7 was advanced into the Subclav. Vein (Rt) using the Percutaneo us technique. 11:10:41 A LEAD, CAPSURE FIX NOVUS, 52CM 52CM was inserted and positioned in the RV. 11:20:21 Lead placement verified under fluoroscopy 11:20:22 The RV lead impedance and threshold being tested. 11:22:24 The RV lead was sutured to the fascia. 11:28:32 A PACEMAKER, ADVISA SR MRI SURESCAN A3SR01 VVIR was connected and placed in the pocket. 11:31:20 Implant Procedure was performed. 11:31:22 Pocket flushed with antibiotic solution 11:31:26 A PPM Implant . (Single) 11:33:13 Closing the device. Second Sponge And Instrument Count Done by Beck Coelho. 11:34:00 Hypo's: 4, Sponges: 30, Bovie/scratch: 2 Sutures: ~SUTURE~, Blades: 3, Instruments: 26, Syveck Patches: 0 Verified by Alan Ellis RN 11:50:38 The pocket was closed. 11:50:39 Case End The Final Sponge And Instrument Count Done by Beck Coelho. 11:51:24 Hypo's: 4, Sponges: 30, Bovie/scratch: 2 Sutures: 5, Blades: 3, Instruments: 26, Syveck Patches: 0 Verified by Alan Ellis RN 11:52:04 Steri-strips and a sterile dressing applied to site. 11:52:30 HR=60 bpm, QIEJ=866/61 mmhg, SpO2=98 %, Resp=22 B/min 11:58:21 29cm TR band on right forearm removed. 3ml of air released from TR band on right Radial. 12:02:01 No case complications noted. 12:02:03 Cine recording checked. 12:02:07 Bedside Report will be given. 12:02:09 Implantable Device card placed in patient's chart. Assessment: Final Case, HR=60 BPM, Rhythm=paced, BZSQ=269/61 mmhg, Chest Pain=0 Right Pulses: Elmer Ped=2, Femoral=2, Radial=2 12:06:14 Left Pulses: Elmer Ped=2, Femoral=2 Respiration: Resp=20 B/min 12:06:21 LMA removed by anesthesia. 12:08:01 Defibrillator and ground pads removed. Skin intact. 12:10:52 A sling was placed on the affected arm. 12:12:29 Patient moved to bed 12:14:33 3 ml air released from TR band. 12:18:28 Patient transported to PACU 08/18/2017 12:18:31 PM Financial #: [id number] Patient Name: CAROLE CANELA Study #: [id number] Initial MD: Beck Coelho Date of : 1940 Study Date: 08/18/2017 End Study - Contrast Media Used In Study Contrast Total Opened (mL) Total Used (mL) Total Wasted (mL) Omnipaque 15 15 0 End Study - Maximum Contrast Load Max Contrast Load (mL) 530.6 End Study - Radiation Exposure Fluoro Time (minutes) 7.4 End Study - Patient Disposition Complications Transferred To Interventional Outcome No Critical Care Bed successful 08/18/2017 12:18:31 PM Financial #: [id number]
--- NOTE | 2017-08-18 12:33 | MP ---
cc: Beck Coelho MD DATE OF OPERATION: 08/18/2017 PREOPERATIVE DIAGNOSIS: Atrial fibrillation with symptomatic bradycardia. POSTOPERATIVE DIAGNOSIS: Atrial fibrillation with symptomatic bradycardia. PROCEDURE PERFORMED: Insertion of a ventricular demand pacemaker via the right subclavian vein. DESCRIPTION OF PROCEDURE: The patient was brought to the cardiac catheterization lab in fasting state. Sedation was provided by Anesthesia. The upper chest was prepped and draped in sterile fashion. Using 1% lidocaine for local anesthesia, an incision was made parallel to and below the right clavicle. Using blunt and sharp dissection with Bovie for hemostasis, a pocket was fashioned above the pectoralis muscle. Next, contrast was administered through the IV in the right arm using a Cook needle and syringe, the right subclavian vein was cannulated and the guidewire placed into the superior vena cava. Over this, a 7-Kyrgyz peel away sheath was introduced. Through this, the ventricular lead was inserted and using appropriate stylets were screwed into the right ventricle. The spot that I found was on the low to mid septum confirmed by [place] fluoroscopy with excellent sensing and pacing thresholds. The peel away sheath was removed. The lead was secured to the underlying fascia using three 2-0 silk sutures. The lead was then connected to the pacemaker generator, which was then positioned on the floor of the pocket. The wound was irrigated with antibiotic solution. The generator was secured to the floor of the pocket using a single 2-0 silk suture. The wound was then carefully closed in layers using interrupted 2-0 Vicryl sutures for the deep fascial layers, interrupted 3-0 Vicryl sutures for the subcutaneous layers, followed by a running 4-0 Monocryl stitch and then Steri-Strips were to be applied. There were no complications. Estimated blood loss was about 10 mL. The patient tolerated the procedure well. FINDINGS: The pacemaker is a Medtronic model A3SR01, Advisa SR MRI SureScan, serial number [id number]. It is programmed VVIR at a rate of 60-130. The ventricular lead is a Medtronic model 4076, length 52 cm, serial number [id number] with an 8.4 millivolt R-wave, slew of 3.5 volts per second, resistance of 782 ohms and a threshold of 1 volt. A chest x-ray will be ordered. I anticipate he will be able to be discharged home tomorrow. We will hold the Eliquis a little while longer to make sure there is good hemostasis before its renewed. Tentatively would wait 24-36 hours to reinitiate Eliquis. MD RIZWANA Juarez/ANTHONY , 11:59 AM , 12:32 PM
[2017-08-18] MEDS ORDERED: DO NOT ADM ANY ANTICOAGULANT DRUGS PRN (12:34)
--- NOTE | 2017-08-18 12:56 | RADRPT ---
EXAM DATE/TIME: 08/18/2017 12:41 [place] COMPARISON: MRI BRAIN W/O CONTRAST, August 17, 2017, 16:53. CHEST SINGLE AP, August 17, 2017, 22:21. INDICATIONS : Post op, pacemaker. MEDICAL HISTORY : Hypertension. Atrial fibrillation SURGICAL HISTORY : Ablation ENCOUNTER: Initial ACUITY: 1 day PAIN SCORE: Non-responsive. LOCATION: Bilateral upper chest FINDINGS: A single view of the chest demonstrates the lungs to be symmetrically aerated without evidence of mas s, infiltrate or effusion. The cardiomediastinal contours are unremarkable. Pacemaker in good posit ion. Osseous structures are intact. CONCLUSION: Pacemaker in good position, negative for pneumothorax. Renny Marin MD FACR on August 18, 2017 at 12:52 Board Certified Radiologist. This report was verified electronically.
--- NOTE | 2017-08-18 15:12 | HHI.PR ---
Subjective Remarks Pt is a 77 y/o M with h/o HTN and Atrial Fibrillation. H/o prior ablation. Pt was admitted with c/o lightheadedness and difficulty ambulating. Pt underwent LHC and PPM today. Pt had nausea which improved with compazine. Pt is now tolerating PO intake. Objective Vitals Vital Signs Date Time Temp Pulse Resp B/P (MAP) Pulse Ox O2 Delivery O2 Flow Rate FiO2 08/18/17 14:44 63 08/18/17 13:34 59 08/18/17 13:34 98.2 60 18 143/79 (100) 95 08/18/17 13:00 97.8 60 16 158/81 (106) 98 Room Air 08/18/17 12:45 60 16 159/78 (105) 97 Room Air 08/18/17 12:30 97.9 60 16 162/77 (105) 100 Nasal Cannula 3 08/18/17 08:30 98.0 54 18 167/87 (113) 98 08/18/17 08:30 40 08/18/17 06:02 46 08/18/17 05:07 44 08/18/17 04:30 47 08/18/17 03:40 98.4 45 20 155/70 (98) 97 08/18/17 03:40 42 08/18/17 02:30 46 08/18/17 01:04 55 08/18/17 00:53 59 08/17/17 23:40 98.5 60 20 164/85 (111) 100 08/17/17 23:40 49 08/17/17 22:00 50 08/17/17 22:00 98.5 54 20 166/69 (101) 98 08/17/17 21:19 08/17/17 17:39 60 16 149/78 (101) 98 Room Air 08/17/17 16:24 58 18 151/71 (97) 97 Room Air 08/17/17 15:48 60 18 153/88 (109) 97 Room Air 08/17/17 15:22 56 16 153/80 (104) 61 16 158/83 (108) 67 16 174/82 (112) Result Diagram: 08/17/17 1510 08/17/17 1510 Imaging Last Impressions Chest X-Ray 08/18/17 0000 Signed Impressions: Service Date/Time: Friday, August 18, 2017 12:41 - CONCLUSION: Pacemaker in good position, negative for pneumothorax. Renny Marin MD FACR Brain MRI 08/17/17 1448 Signed Impressions: Service Date/Time: August 16:53 - CONCLUSION: 1. Senescent changes with mild periventricular small vessel ischemic white matter demyelination. 2. No acute abnormality. Specifically, no acute infarction as questioned. Franklyn Duong MD Objective Remarks GENERAL: This is a well-nourished, well-developed patient, in no apparent distress. CARDIOVASCULAR: Regular rate and rhythm without murmurs, gallops, or rubs. RESPIRATORY: Clear to auscultation. Breath sounds equal bilaterally. No wheezes , rales, or rhonchi. GASTROINTESTINAL: Abdomen soft, non-tender, nondistended. Normal active bowel sounds MUSCULOSKELETAL: Extremities without clubbing, cyanosis, or edema. NEURO: Alert & Oriented x4 to person, place, time, situation. Moves all ext x4 A/P Problem List: (1) Dizziness ICD Codes: R42 - Dizziness and giddiness Status: Acute Plan: - Pt presented to ER with c/o lightheadedness. - Pt found to be bradycardic - troponins elevated, but flat pattern: 0.12, 0.11, 0.11 - Case d/w Dr. Beck Coelho Cardiology (08/18/17) - Case d/w Neurology, Dr. Jimmy Chaidez (08/18/17) - Pt underwent LHC (08/18/17) by Dr. Beck Coelho. No findings of obstructive coronary disease - Pt underwent PPM (08/18/17) by Dr. Beck Coelho. - HR now paced. - observe on telemetry overnight. - repeat CBC/BMP/Mag in AM - DVT prophylaxis - supportive care (2) Ataxia ICD Codes: R27.0 - Ataxia, unspecified Status: Chronic Plan: - see above - ataxia likely d/t bradycardia - appreciate Neurology Consultation by Dr. Chaidez - Pt should f/u with Neurology outpt after discharge. (3) Hypertension ICD Codes: I10 - Essential (primary) hypertension Status: Chronic Plan: - valsartan - observe (4) Atrial fibrillation ICD Codes: I48.91 - Unspecified atrial fibrillation Plan: - rate controlled - resumption of Eliquis per Cardiology (5) Prediabetes ICD Codes: R73.03 - Prediabetes Status: Chronic Plan: - diet controlled - ADA diet - observe Problem Qualifiers (1) Hypertension: Qualified Codes: I10 - Essential (primary) hypertension (2) Atrial fibrillation: Qualified Codes: I48.0 - Paroxysmal atrial fibrillation Josh Ryan DO Aug 18, 2017 15:12
--- NOTE | 2017-08-18 16:07 | PD.CONS ---
History of Present Illness Service Neurology Consult Requested By Medicine Reason for Consult Gait disturbance Primary Care Physician Gisela Keller MD History of Present Illness History of Present Illness 77-year-old male with history of hypertension, prediabetes, hypothyroidism, atrial fibrillation currently taking Eliquis, admitted to the hospital for lightheadedness. Shortly prior to admission, patient reports that he felt lightheaded and had gait imbalance. Patient reports he has had poor gait/ ataxia for over a year, possibly sensory ataxia due to decreased sensation on the soles of feet. MRI of the brain revealed no acute abnormalities, however a troponin was slightly elevated at 0.12. Ultimately the patient underwent cardiac cath and pacemaker implantation earlier today due to symptomatic bradycardia. He is recovering well, and denies complaint. The patient states that he is not concerned about his gait, and feels like it is a normal part of aging. He denies any tremors, memory problems, or vision changes. Review of Systems Negative except as per HPI Past Family Social History Past Medical History Hypertension Atrial fibrillation Prediabetes Decreased auditory function Past Surgical History Ablation procedure for atrial fibrillation Colonoscopies x2 Reported Medications Calcium + D & K (Calcium-Vitamins D & K) 500-1,000-40 Mg-Unit-Mcg Chew 1 Tab CHEW Fish Oil 1000 mg ([place]-3 Fatty Acids) 300 Mg-1,000 Mg Cap 1 Cap PO DAILY Levothyroxine (Levothyroxine Sodium) 50 Mcg Tab 50 Mcg PO DAILY Atorvastatin (Atorvastatin Calcium) 10 Mg Tab 10 Mg PO HS Valsartan 320 Mg Tab 320 Mg PO DAILY Eliquis (Apixaban) 5 Mg Tab 5 Mg PO BID Hydrochlorothiazide 25 Mg Tab 25 Mg PO DAILY Amlodipine (Amlodipine Besylate) 10 Mg Tab 10 Mg PO DAILY Allergies: Coded Allergies: No Known Allergies (Verified Adverse Reaction, Unknown, 08/17/17) Family History Mother at age 97 Father at age 57 due to complications of gallbladder surgery No known family hx of PD Social History Lives with his Quit smoking 40 years ago; prior to that smoked one half pack per days for 20 years Drinks one glass of wine approximately every other day Denies illicit drug use Imaging Last 72 hours Impressions Brain MRI 08/17/17 0028 Signed Impressions: Service Date/Time: August 16:53 - CONCLUSION: 1. Senescent changes with mild periventricular small vessel ischemic white matter demyelination. 2. No acute abnormality. Specifically, no acute infarction as questioned. Franklyn Duong MD Review of Systems All other ROS: ROS reviewed as documented in chart Past Family Social History Allergies: Coded Allergies: No Known Allergies (Verified Allergy, Unknown, 08/17/17) Active Ordered Medications Current Medications Medications (Trade) Dose Ordered Sig/Debbi Route Start Time Stop Time Status Last Admin (Lipitor) 10 mg HS PO 08/17/17 23:00 08/17/17 23:35 (Synthroid) 50 mcg DAILY@0600 PO 08/18/17 06:00 08/18/17 05:29 (Diovan) 320 mg DAILY PO 08/18/17 09:00 Sodium Chloride 1,000 ml @ 100 mls/hr Q10H IV 08/18/17 07:45 08/23/17 07:44 08/18/17 07:45 (Benadryl) 50 mg CONTINUING EDUCATION INSTRUCTOR PO 08/18/17 07:45 08/22/17 07:44 (Valium) 5 mg CONTINUING EDUCATION INSTRUCTOR PO 08/18/17 07:45 08/22/17 07:44 (Tylenol) 650 mg Q4H PRN PO 08/18/17 12:00 (Ultram) 50 mg Q4H PRN PO 08/18/17 12:00 (Bacitracin Oint Packet) 0.9 gm UNSCH PRN TOP 08/18/17 12:00 Miscellaneous Information ALL NURSING DEPARTME... UNSCH PRN .XX 08/18/17 12:34 08/19/17 12:33 Exam I&O / VS Vital Signs Date Time Temp Pulse Resp B/P (MAP) Pulse Ox O2 Delivery O2 Flow Rate FiO2 08/18/17 14:44 63 08/18/17 13:34 59 08/18/17 13:34 98.2 60 18 143/79 (100) 95 08/18/17 13:00 97.8 60 16 158/81 (106) 98 Room Air 08/18/17 12:45 60 16 159/78 (105) 97 Room Air 08/18/17 12:30 97.9 60 16 162/77 (105) 100 Nasal Cannula 3 08/18/17 08:30 98.0 54 18 167/87 (113) 98 08/18/17 08:30 40 08/18/17 06:02 46 08/18/17 05:07 44 08/18/17 04:30 47 08/18/17 03:40 98.4 45 20 155/70 (98) 97 08/18/17 03:40 42 08/18/17 02:30 46 08/18/17 01:04 55 08/18/17 00:53 59 08/17/17 23:40 98.5 60 20 164/85 (111) 100 08/17/17 23:40 49 08/17/17 22:00 50 08/17/17 22:00 98.5 54 20 166/69 (101) 98 08/17/17 21:19 08/17/17 17:39 60 16 149/78 (101) 98 Room Air 08/17/17 16:24 58 18 151/71 (97) 97 Room Air General: Alert and Oriented, No acute distress Eye: PERRL, EOMI Respiratory: Non-labored respirations, Symmetrical expansion Cardiology: Normal rate Neurologic: Alert, Oriented, Normal sensory, CN II-XII intact, Normal DTR's Psychiatric: Cooperative, Appropriate mood & affect Exam Comments Alert oriented 3, speech fluent, EOMI without nystagmus or ptosis, moves all extremities however right upper extremity is immobilized secondary to recent surgery, plantar flexor Review/Management Diagnosis/Plan: (1) Dizziness ICD Codes: R42 - Dizziness and giddiness Status: Acute Plan: MRI brain NAICP CUS is still pending Dizziness likely 2/2 bradycardia Pt is s/p pacemaker placement Fall precautions (2) Elevated troponin I level ICD Codes: R74.8 - Abnormal levels of other serum enzymes Status: Acute Plan: Per Cardiology S/p cath and pacer today (3) Ataxia ICD Codes: R27.0 - Ataxia, unspecified Status: Chronic Plan: Pt describes possible sensory ataxia Advised to follow up in office for evaluation at his baseline Could not assess gait today, as he is s/p pacemaker and cath earlier today (4) Prediabetes ICD Codes: R73.03 - Prediabetes Status: Chronic Plan: Watch A1c Cody Thomas Aug 18, 2017 16:07
[2017-08-18] MEDS ORDERED: PROCHLORPERAZINE INJ 10 MG/2 ML VIAL IV PUSH PRN (16:30)
--- NOTE | 2017-08-18 17:29 | RADRPT ---
EXAM DATE/TIME: 08/18/2017 16:43 [facility] COMPARISON: No previous studies available for comparison. INDICATIONS : Lightheadedness. MEDICAL HISTORY : Hypercholesterolemia. Hypertension. Arthritis. Thyroid disease. Afib. Diabetes. Gait problems. Anxiet y. SURGICAL HISTORY : Bilateral cataracts. Cardiac ablation. ENCOUNTER: Initial ACUITY: 1 day PAIN SCORE: 0/10 LOCATION: Bilateral neck PEAK SYSTOLIC VELOCITIES (cm/sec): ICA/CCA RATIO: Right: 0.6 Left: 1.1 ICA: Right: 69.7 Left: 92.8 CCA: Right: 109.7 Left: 85.5 ECA: Right: 58.2 Left: 36.9 VERTEBRAL: Right: 62.8 antegrade Left: 69.8 antegrade Elevated flow velocities and ICA/CCA ratios have been found to correlate with increased degrees of vessel stenosis, calculated as percentage of diameter relative to a normal segment of distal ICA/CCA FINDINGS: RIGHT CAROTID: No significant stenosis is visualized. The waveforms are within normal limits. LEFT CAROTID: No significant stenosis is visualized. The waveforms are within normal limits. VERTEBRAL ARTERIES: Antegrade flow is seen in both vertebral arteries. MISCELLANEOUS: None. CONCLUSION: 1. No significant carotid flow limiting stenosis. 2. Antegrade vertebral artery flow bilaterally. Franklyn Duong MD on August 18, 2017 at 17:26 Board Certified Radiologist. This report was verified electronically.
[2017-08-18] MEDS ORDERED: TEMAZEPAM 15 MG CAP PO PRN (17:45)
--- NOTE | 2017-08-18 19:51 | EKG ---
Date Performed: 08/17/2017 Time Performed: 15:00:45 PTAGE: 77 years EKG: ATRIAL FIBRILLATION WITH SLOW VENTRICULAR RESPONSE RIGHT BUNDLE BRANCH BLOCK LEFT ANTERIOR FASCICULAR BLOCK ABNORMAL ECG Since the PREVIOUS TRACING , no significant change noted PREVIOUS TRACIN09/19/2014 10.21 DOCTOR: Bcek Coelho Interpretating Date/Time 08/18/2017 19:49:29
[2017-08-18] MEDS: ATORVASTATIN 10 MG TAB PO SCH (22:14)
[2017-08-19] VITALS (11 sets, daily range): BP systolic 161; BP diastolic 75–76; PULSE 60–75; RESP 19–20; TEMP 98.4–99.4; O2SAT 94–95
[2017-08-19] MEDS: SODIUM CHLOR 0.9% 1000 ML INJ 1,000 ML IV SCH (03:45)
[2017-08-19 04:35] LABS: AUTOMATED NEUTROPHIL # 4.5 TH/MM3 (1.8-7.7); BASOPHIL % 0.2 % (0.0-2.0); EOSINOPHIL # 0.1 TH/MM3 (0-0.4); EOSINOPHIL % 0.8 % (0.0-4.0); HEMATOCRIT 37.2 % (39.0-51.0); HEMOGLOBIN 12.7 GM/DL (13.0-17.0); LYMPH % 19.3 % (9.0-44.0); LYMPHOCYTE # 1.2 TH/MM3 (1.0-4.8); MEAN CELL VOLUME 90.1 FL (80.0-100.0); MEAN CORPUSCULAR HEMOGLOBIN 30.7 PG (27.0-34.0); MEAN CORPUSCULAR HGB CONC 34.1 % (32.0-36.0); MEAN PLATELET VOLUME 8.8 FL (7.0-11.0); MONO % 9.1 % (0.0-8.0); MONOCYTE # 0.6 TH/MM3 (0-0.9); NEUT % 70.6 % (16.0-70.0); PLATELET COUNT 209 TH/MM3 (150-450); RED BLOOD COUNT 4.13 MIL/MM3 (4.50-5.90); RED CELL DISTRIBUTION WIDTH 13.9 % (11.6-17.2); WHITE BLOOD COUNT 6.4 TH/MM3 (4.0-11.0)
[2017-08-19 04:56] LABS: BICARBONATE 27.3 MEQ/L (21.0-32.0); CALCIUM 8.5 MG/DL (8.5-10.1); CREATININE 0.9 MG/DL (0.60-1.30)
[2017-08-19] MEDS: LEVOTHYROXINE SODIUM 50 MCG TAB PO SCH (05:58)
[2017-08-19] MEDS: VALSARTAN 160 MG TAB PO SCH (08:21)
--- NOTE | 2017-08-19 09:47 | PD.CARD.PN ---
Subjective Subjective Remarks Pt without complaints, wants d/c Objective Medications Current Medications Medications (Trade) Dose Ordered Sig/Debbi Route Start Time Stop Time Status Last Admin (Lipitor) 10 mg HS PO 08/17/17 23:00 08/18/17 22:14 (Synthroid) 50 mcg DAILY@0600 PO 08/18/17 06:00 08/19/17 05:58 (Diovan) 320 mg DAILY PO 08/18/17 09:00 08/19/17 08:21 Sodium Chloride 1,000 ml @ 100 mls/hr Q10H IV 08/18/17 07:45 08/23/17 07:44 08/18/17 15:59 (Benadryl) 50 mg FEED MILL SUPERVISOR PO 08/18/17 07:45 08/22/17 07:44 (Valium) 5 mg FEED MILL SUPERVISOR PO 08/18/17 07:45 08/22/17 07:44 (Tylenol) 650 mg Q4H PRN PO 08/18/17 12:00 (Ultram) 50 mg Q4H PRN PO 08/18/17 12:00 (Bacitracin Oint Packet) 0.9 gm UNSCH PRN TOP 08/18/17 12:00 Miscellaneous Information ALL NURSING DEPARTME... UNSCH PRN .XX 08/18/17 12:34 08/19/17 12:33 (Compazine Inj) 10 mg Q6H PRN IV PUSH 08/18/17 16:30 08/18/17 16:31 (Restoril) 15 mg HS PRN PO 08/18/17 17:45 08/18/17 22:14 Vital Signs / I&O Vital Signs Date Time Temp Pulse Resp B/P (MAP) Pulse Ox O2 Delivery O2 Flow Rate FiO2 08/19/17 09:00 61 08/19/17 08:00 62 08/19/17 07:00 65 08/19/17 07:00 99.4 62 19 161/76 (104) 95 08/19/17 06:16 62 08/19/17 05:26 66 08/19/17 04:54 60 08/19/17 03:54 73 08/19/17 03:54 98.4 70 20 161/75 (103) 94 08/19/17 02:36 72 08/19/17 01:16 62 08/19/17 00:00 75 08/18/17 23:30 98.4 71 20 163/58 (93) 96 08/18/17 23:20 59 08/18/17 22:00 82 08/18/17 21:30 70 08/18/17 20:00 80 08/18/17 19:40 63 08/18/17 19:40 98.1 68 19 168/78 (108) 94 08/18/17 18:01 60 08/18/17 17:59 60 08/18/17 16:14 61 08/18/17 15:20 60 08/18/17 15:20 98.0 62 18 151/81 (104) 94 08/18/17 14:44 63 08/18/17 13:34 59 08/18/17 13:34 98.2 60 18 143/79 (100) 95 08/18/17 13:00 97.8 60 16 158/81 (106) 98 Room Air 08/18/17 12:45 60 16 159/78 (105) 97 Room Air 08/18/17 12:30 97.9 60 16 162/77 (105) 100 Nasal Cannula 3 I/O 08/18/17 08/18/17 08/18/17 08/19/17 08/19/17 08/19/17 07:00 15:00 23:00 07:00 15:00 23:00 Intake Total 240 ml 780 ml 480 ml Output Total 700 ml 100 ml Balance 240 ml 80 ml 380 ml Intake Oral 240 ml 480 ml 480 ml IV Total 300 ml Output Urine Total 700 ml 100 ml # Voids 3 7 # Bowel Movements 0 0 Physical Exam GENERAL: Well developed, well nourished. No acute distress. HEENT: Jugular venous pressure is normal. CHEST: Lungs clear to auscultation bilaterally. Unlabored respiratory effort. PPM site dresses no visible hematoma/ecchymosis CARDIAC: Regular rate and rhythm without S3, S4, or murmur. ABDOMEN: Soft, nontender, no hepatosplenomegaly. Bowel sounds present. EXTREMITIES: No clubbing, cyanosis, or edema, right wrist looks great with good radial pulse Laboratory Laboratory Tests Test 08/19/17 03:47 White Blood Count 6.4 TH/MM3 Red Blood Count 4.13 MIL/MM3 Hemoglobin 12.7 GM/DL Hematocrit 37.2 % Mean Corpuscular Volume 90.1 FL Mean Corpuscular Hemoglobin 30.7 PG Mean Corpuscular Hemoglobin Concent 34.1 % Red Cell Distribution Width 13.9 % Platelet Count 209 TH/MM3 Mean Platelet Volume 8.8 FL Neutrophils (%) (Auto) 70.6 % Lymphocytes (%) (Auto) 19.3 % Monocytes (%) (Auto) 9.1 % Eosinophils (%) (Auto) 0.8 % Basophils (%) (Auto) 0.2 % Neutrophils # (Auto) 4.5 TH/MM3 Lymphocytes # (Auto) 1.2 TH/MM3 Monocytes # (Auto) 0.6 TH/MM3 Eosinophils # (Auto) 0.1 TH/MM3 Basophils # (Auto) 0.0 TH/MM3 CBC Comment DIFF FINAL Differential Comment Blood Urea Nitrogen 10 MG/DL Creatinine 0.90 MG/DL Random Glucose 111 MG/DL Calcium Level 8.5 MG/DL Magnesium Level 2.0 MG/DL Sodium Level 142 MEQ/L Potassium Level 3.3 MEQ/L Chloride Level 108 MEQ/L Carbon Dioxide Level 27.3 MEQ/L Anion Gap 7 MEQ/L Estimat Glomerular Filtration Rate 81 ML/MIN Assessment and Plan Assessment and Plan s/p PPM- PPM check with normal function -site good -follow up next week AF- restart eliquis s/p Cath -site good, normal coronaries Dispo- ok for d/c home Gaby Fernandes MD Aug 19, 2017 09:47
[2017-08-19] MEDS ORDERED: POTASSIUM CHLORIDE 20 MEQ CONTROLLED RELEASE TAB PO STA (10:18)
--- NOTE | 2017-08-19 10:24 | HHI.PR ---
Subjective Remarks No new complaints. No chest pain, no palpitations. No c/o dizziness or lightheadedness. Objective Vitals Vital Signs Date Time Temp Pulse Resp B/P (MAP) Pulse Ox O2 Delivery O2 Flow Rate FiO2 08/19/17 10:00 63 08/19/17 09:00 61 08/19/17 08:00 62 08/19/17 07:00 65 08/19/17 07:00 99.4 62 19 161/76 (104) 95 08/19/17 06:16 62 08/19/17 05:26 66 08/19/17 04:54 60 08/19/17 03:54 73 08/19/17 03:54 98.4 70 20 161/75 (103) 94 08/19/17 02:36 72 08/19/17 01:16 62 08/19/17 00:00 75 08/18/17 23:30 98.4 71 20 163/58 (93) 96 08/18/17 23:20 59 08/18/17 22:00 82 08/18/17 21:30 70 08/18/17 20:00 80 08/18/17 19:40 63 08/18/17 19:40 98.1 68 19 168/78 (108) 94 08/18/17 18:01 60 08/18/17 17:59 60 08/18/17 16:14 61 08/18/17 15:20 60 08/18/17 15:20 98.0 62 18 151/81 (104) 94 08/18/17 14:44 63 08/18/17 13:34 59 08/18/17 13:34 98.2 60 18 143/79 (100) 95 08/18/17 13:00 97.8 60 16 158/81 (106) 98 Room Air 08/18/17 12:45 60 16 159/78 (105) 97 Room Air 08/18/17 12:30 97.9 60 16 162/77 (105) 100 Nasal Cannula 3 Result Diagram: 08/19/17 0347 08/19/17 0347 Imaging Last Impressions Chest X-Ray 08/18/17 0000 Signed Impressions: Service Date/Time: Friday, August 18, 2017 12:41 - CONCLUSION: Pacemaker in good position, negative for pneumothorax. Renny Marin MD FACR Brain MRI 08/17/17 1448 Signed Impressions: Service Date/Time: August 16:53 - CONCLUSION: 1. Senescent changes with mild periventricular small vessel ischemic white matter demyelination. 2. No acute abnormality. Specifically, no acute infarction as questioned. Franklyn Duong MD Objective Remarks GENERAL: This is a well-nourished, well-developed patient, in no apparent distress. CARDIOVASCULAR: Regular rate and rhythm without murmurs, gallops, or rubs. RESPIRATORY: Clear to auscultation. Breath sounds equal bilaterally. No wheezes , rales, or rhonchi. GASTROINTESTINAL: Abdomen soft, non-tender, nondistended. Normal active bowel sounds MUSCULOSKELETAL: Extremities without clubbing, cyanosis, or edema. NEURO: Alert & Oriented x4 to person, place, time, situation. Moves all ext x4 A/P Problem List: (1) Dizziness ICD Codes: R42 - Dizziness and giddiness Status: Acute Plan: - Pt presented to ER with c/o lightheadedness. - Pt found to be bradycardic - troponins elevated, but flat pattern: 0.12, 0.11, 0.11 - Case d/w Dr. Beck Coelho Cardiology (08/18/17) - Case d/w Neurology, Dr. Jimmy Chaidez (08/18/17) - Pt underwent LHC (08/18/17) by Dr. Beck Coelho. No findings of obstructive coronary disease - Pt underwent PPM (08/18/17) by Dr. Beck Coelho. - HR now paced. - telemetry reviewed (08/19) - Pacemaker interrogated this AM & noted to be functioning normally without episodes. No changes made. - Case reviewed by Cardiology, Dr. John and cleared for discharge. - Case d/w Dr. Coelho (08/19/17). Pt to f/u with Dr. Coelho next week. - Potassium 3.3 (08/19) --> KCL 20mEq prior to discharge - discharge to home today. - see discharge orders - f/u with Dr. Coelho in 3-5 days (2) Ataxia ICD Codes: R27.0 - Ataxia, unspecified Status: Chronic Plan: - see above - ataxia likely d/t bradycardia - appreciate Neurology Consultation by Dr. Chaidez - Pt should f/u with Neurology outpt after discharge. (3) Hypertension ICD Codes: I10 - Essential (primary) hypertension Status: Chronic Plan: - valsartan - SBP trending in the 150s 160s - pt resume home doses of amlodipine and HCTZ upon discharge - Pt instructed to keep home BP log and present log to Dr. Coelho for review at f/u appointment (4) Atrial fibrillation ICD Codes: I48.91 - Unspecified atrial fibrillation Plan: - rate controlled - Pt to resume eliquis today. (5) Prediabetes ICD Codes: R73.03 - Prediabetes Status: Chronic Plan: - diet controlled - ADA diet - observe Problem Qualifiers (1) Hypertension: Qualified Codes: I10 - Essential (primary) hypertension (2) Atrial fibrillation: Qualified Codes: I48.0 - Paroxysmal atrial fibrillation Josh Ryan DO Aug 19, 2017 10:24
[2017-08-19] MEDS ORDERED: TRAM50 PO (10:27)
--- NOTE | 2017-08-19 10:34 | HHI.DCPOC ---
Discharge Care Plan Diagnosis: (1) Bradycardia (2) Dizziness (3) Atrial fibrillation (4) S/P cardiac pacemaker procedure Goals to Promote Your Health * To prevent worsening of your condition and complications * To maintain your health at the optimal level Directions to Meet Your Goals Take your medications as prescribed Follow your dietary instruction Follow activity as directed Keep your appointments as scheduled Take your immunizations and boosters as scheduled If your symptoms worsen call your PCP, if no PCP go to Urgent Care Center or Emergency Room Smoking is Dangerous to Your Health. Avoid second hand smoke Call the 24-hour hour crisis hotline for domestic abuse at 1) f/u with PCP, Dr. Gisela Keller, in 1 week 2) f/u with Cardiology, Dr. Beck Coelho, in 3-5 days Keep home blood pressure log. Josh Ryan DO Aug 19, 2017 10:33
[2017-08-19] MEDS ORDERED: PROPOFOL 200 MG/20 ML AMP OTHER ONE (11:14)
--- NOTE | 2017-08-19 11:25 | EKG ---
Date Performed: 08/18/2017 Time Performed: 04:16:46 PTAGE: 77 years EKG: Atrial fibrillation with slow ventricular rate Right bundle branch block Left anterior fasc icular block Abnormal ECG NO PREVIOUS TRACING DOCTOR: Beck Coelho Interpretating Date/Time 08/19/2017 11:23:43
--- NOTE | 2017-08-19 16:58 | EKG ---
Date Performed: 08/18/2017 Time Performed: 12:50:24 PTAGE: 77 years EKG: Ventricular paced rhythm Compared to previous tracing, the patient is now paced. ABNORMAL R HYTHM ECG PREVIOUS TRACING : 08/18/2017 04.16 DOCTOR: Gaby Fernandes Interpretating Date/Time 08/19/2017 16:57:21
[2017-08-19] MEDS ORDERED: APIXABAN 5 MG TABLET PO SCH (21:00)
== END 2017-08-19 11:15 | disposition home or self-care (01) ==
LOC: PHED 14:21 → PHEDA 18:06 → HCPC 21:50
PROVIDERS: ADMIT Hospitalist; ATTEND Hospitalist
DX: I44.0 Atrioventricular block, first degree (principal); I45.2 Bifascicular block; I48.0 Paroxysmal atrial fibrillation; R00.1 Bradycardia, unspecified; I49.9 Cardiac arrhythmia, unspecified; I35.8 Other nonrheumatic aortic valve disorders; I08.1 Rheumatic disorders of both mitral and tricuspid valves; R42 Dizziness and giddiness; R26.0 Ataxic gait; I10 Essential (primary) hypertension; E78.00 Pure hypercholesterolemia, unspecified; R73.03 Prediabetes; E07.9 Disorder of thyroid, unspecified; F41.9 Anxiety disorder, unspecified; R09.89 Other specified symptoms and signs involving the circulatory and respiratory systems; Z79.01 Long term (current) use of anticoagulants
CPT/HCPCS: 00530; 33207; 70551; 71045; 80048; 80053; 82550; 82607; 83735; 84443; 84484; 85025; 86038; 93005; 93458; 93880; 96360; 96361; 96374; 99285; C1769; C1786; C1893; C1898; G0378; J0690; J0780; J1644; J2250; J2405; J3010; J3370; J7030; J7050; 99281

== ENCOUNTER 2017-11-28 00:02 | Observation (INO) ==
[2017-11-28] MEDS ORDERED: Sod Chloride 0.9% Inj 1,000 ML IV.SIG ONE (00:22)
[2017-11-28 00:45] LABS: Baso % (Auto) 0.5 % (0.0-2.0); Eos # (Auto) 0.1 th/mm3 (0.0-0.4); Eos % (Auto) 1.9 % (0.0-4.0); Hemoglobin 12.7 gm/dL (13.0-17.0); Lymph # (Auto) 1.5 th/mm3 (1.0-4.8); Lymph % (Auto) 29.5 % (9.0-44.0); Mean Corpuscular HGB Conc 34.3 % (32.0-36.0); Mean Corpuscular Hemoglobin 30.8 pg (27.0-34.0); Mean Corpuscular Volume 89.7 fL (80.0-100.0); Mean Platelet Volume 9.2 fL (7.0-11.0); Mono # (Auto) 0.6 th/mm3 (0.0-0.9); Mono % (Auto) 11.1 % (0.0-8.0); Neut # (Auto) 2.8 th/mm3 (1.8-7.7); Platelet Count 207 th/mm3 (150-450); Red Blood Count 4.12 mil/mm3 (4.50-5.90); Red Cell Distribution Width 13.2 % (11.6-17.2)
--- NOTE | 2017-11-28 00:46 | XR ---
EXAM DATE: 11/28/2017 12:37 AM EDT AGE/SEX: 77 years / Male INDICATIONS: Shortness of breath. CLINICAL DATA: This is the patient's initial encounter. Patient reports that signs and symptoms have been present for 1 day and indicates a pain score of 0/10. MEDICAL/SURGICAL HISTORY: None. Pacemaker. COMPARISON: [facility] [place], CHEST SINGLE AP, 08/18/2017. . FINDINGS: A single AP view of the chest demonstrates the lungs to be symmetrically aerated without evidence of mass, infiltrate or effusion. Heart size is upper limits of normal. Osseous structures are intact wi th some degenerative spurring of the dorsal spine and left shoulder. Right subclavian unipolar pacer is radiographically intact.. CONCLUSION: No acute cardiopulmonary process to explain current clinical symptoms. Electronically signed by: Grant Krishnamurthy MD 11/28/2017 12:45 AM EDT
--- NOTE | 2017-11-28 00:47 | CT ---
EXAM DATE: 11/28/2017 12:44 AM EDT AGE/SEX: 77 years / Male INDICATIONS: Dizziness. Nausea. CLINICAL DATA: This is the patient's initial encounter. Patient reports that signs and symptoms have been present for 1 day and indicates a pain score of 0/10. MEDICAL/SURGICAL HISTORY: Hypertension. Pacemaker. RADIATION DOSE: 58.46 CTDI (mGy) COMPARISON: [facility], MRI BRAIN W/O CONTRAST, 08/17/2017. . TECHNIQUE: CT of the head without contrast. Using automated exposure control and adjustment of the mA and/or kV according to patient size, radiation dose was kept as low as reasonably achievable to ob tain optimal diagnostic quality images. DICOM format image data is available electronically for revi ew and comparison. FINDINGS: Cerebrum: The ventricles are normal for age. No evidence of midline shift, mass lesion, hemorrhage or acute infarction. No extraaxial fluid collections are seen. Posterior Fossa: The cerebellum and brainstem are intact. The 4th ventricle is midline. The cerebe llopontine angle is unremarkable. Extracranial: The visualized portion of the orbits is intact. Skull: The calvaria is intact. No evidence of skull fracture. CONCLUSION: Negative exam. Electronically signed by: Grant Krishnamurthy MD 11/28/2017 12:46 AM EDT
[2017-11-28 00:53] LABS: Chloride 102 meq/L (98-107); Potassium 3.2 meq/L (3.5-5.1); Sodium 138 meq/L (136-145)
[2017-11-28 00:56] LABS: Calcium 8.8 mg/dL (8.5-10.1); INR 1.1 Ratio
[2017-11-28 00:57] LABS: Albumin 3.7 g/dL (3.4-5.0); Anion Gap 6 meq/L (5-15); Blood Urea Nitrogen 20 mg/dL (7-18); Carbon Dioxide 30.2 meq/L (21.0-32.0); Glucose,Random 147 mg/dL (74-106)
[2017-11-28 01:00] LABS: Alanine Aminotransferase 18 U/L (12-78); Aspartate Aminotransferase 17 U/L (15-37); Glomerular Filtration Rate 53 mL/min (>89)
[2017-11-28 01:01] LABS: Total Protein 7.6 g/dL (6.4-8.2)
[2017-11-28 01:03] LABS: Alkaline Phosphatase 82 U/L (45-117)
[2017-11-28 01:05] LABS: Troponin I 0.11 ng/mL (0.02-0.05)
[2017-11-28] MEDS ORDERED: Acetaminophen 325 MG Tablet PO PRN (02:12)
[2017-11-28] MEDS ORDERED: Bisacodyl 10 MG Supp RECTAL PRN (02:12)
[2017-11-28] MEDS ORDERED: Temazepam 15 MG Capsule PO PRN (02:12)
[2017-11-28] MEDS ORDERED: Heparin - SQ 10,000 UNITS/ML Vial SQ SCH (02:15)
--- NOTE | 2017-11-28 02:20 | ED ---
HPI General Chief complaint: Dizziness Stated complaint: nausea/vomiting Time Seen by Provider: 11/28/17 00:15 History of Present Illness HPI narrative: 77-year-old male history of hypertension, dyslipidemia here for evaluation of one episode of dizziness. Patient says he was laying in bed reading and suddenly had one episode of dizziness/lightheadedness that lasted for a few minutes and went away. He did not have any weakness or spinning sensation or slurred speech or any motor or sensory loss. Dizziness was associated with nausea but no vomiting. at the bedside called the paramedics, blood sugar was normal at that point. Patient has a fit bit and says during the dizziness episode heart rate was in the normal range. Patient was here before on August, he was being evaluated for dizziness episode and had elevated troponin, went for a cardiac cath that was within normal limits and had pacemaker placed for symptomatic bradycardia. Patient states that this morning he did the pacemaker evaluation as scheduled. Patient here in the ER denies any dizziness or spinning sensation or any chest pain or shortness of breath. Related Data Home Medications Medication Instructions Recorded Confirmed amlodipine 10 mg PO DAILY 11/28/17 11/28/17 apixaban [Eliquis] 5 mg PO BID 11/28/17 11/28/17 atorvastatin 10 mg PO HS 11/28/17 11/28/17 carvedilol 6.25 mg PO BID 11/28/17 11/28/17 hydrochlorothiazide 25 mg PO DAILY 11/28/17 11/28/17 levothyroxine 50 mcg PO DAILY 11/28/17 11/28/17 valsartan 320 mg PO HS 11/28/17 11/28/17 Allergies Allergy/AdvReac Type Severity Reaction Status Date / Time No Known Allergies Allergy Verified 11/28/17 00:16 Review of Systems Except as stated in HPI: all other systems reviewed are negative [facility] Social History Social History Substance History: No History of Abuse Second Hand Smoke Exposure: No Smoking Status: Former smoker How Often Do You Have a Drink Containing Alcohol: Monthly or less Recent Out of Country Travel within the Last 8 Weeks: No Immunization History Tetanus Immunization: Unsure Hx Influenza Vaccine This Season: Yes Exam Narrative Exam Narrative: GENERAL: Alert oriented 3 no acute distress. SKIN: Focused skin assessment warm/dry. HEAD: Atraumatic. Normocephalic. EYES: Pupils equal and round. No scleral icterus. No injection or drainage. ENT: No nasal bleeding or discharge. Mucous membranes pink and moist. NECK: Trachea midline. No JVD. CARDIOVASCULAR: Regular rate and rhythm. No murmur appreciated. RESPIRATORY: No accessory muscle use. Clear to auscultation. Breath sounds equal bilaterally. GASTROINTESTINAL: Abdomen soft, non-tender, nondistended. Hepatic and splenic margins not palpable. MUSCULOSKELETAL: No obvious deformities. No clubbing. No cyanosis. No edema. NEUROLOGICAL: Awake and alert. No obvious cranial nerve deficits. Motor grossly within normal limits. Normal speech. PSYCHIATRIC: Appropriate mood and affect; insight and judgment normal. Course Initial Documented Vital Signs Temperature 97.6 F 11/28/17 00:05 Pulse Rate 78 11/28/17 00:05 Respiratory Rate 20 11/28/17 00:05 Blood Pressure 163/82 H 11/28/17 00:05 Pulse Oximetry 99 11/28/17 00:05 Last Documented Vital Signs Temperature 96.8 F L 11/28/17 08:00 Pulse Rate 64 11/28/17 08:00 Respiratory Rate 18 11/28/17 08:00 Blood Pressure 157/74 H 11/28/17 08:00 Pulse Oximetry 95 11/28/17 08:00 Medical Decision Making MDM Narrative Medical decision making narrative: 77-year-old male here for evaluation of dizziness, he has a pacemaker for symptomatic bradycardia placed August 2017. Troponin is 0.11, EKG shows paced rhythm. I spoke with Dr. Coffey editor managing director provisioning analyst, he does not recommend cardiac cath for the elevated troponin since patient had a recent cath and it was negative and since the patient has no symptoms. Is recommending repeat troponin in 3 hours as well as EKG and to place the patient in observation unit for evaluation of the pacemaker. Patient will be admitted, discussed the case with Dr. Pedro who accepted the patient. Lab Data Result diagrams: 11/28/17 00:30 11/28/17 00:30 Lab Results 11/28/17 11/28/17 11/28/17 Range/Units 00:30 00:30 00:30 CBC w Diff Auto diff final WBC 5.0 (4.0-11.0) th/mm3 RBC 4.12 L (4.50-5.90) mil/mm3 Hgb 12.7 L (13.0-17.0) gm/dL Hct 37.0 L (39.0-51.0) % MCV 89.7 (80.0-100.0) fL MCH 30.8 (27.0-34.0) pg MCHC 34.3 (32.0-36.0) % RDW 13.2 (11.6-17.2) % Plt Count 207 (150-450) th/mm3 MPV 9.2 (7.0-11.0) fL Neut % (Auto) 57.0 (16.0-70.0) % Lymph % (Auto) 29.5 (9.0-44.0) % [place] % (Auto) 11.1 H (0.0-8.0) % Eos % (Auto) 1.9 (0.0-4.0) % Baso % (Auto) 0.5 (0.0-2.0) % Neut # (Auto) 2.8 (1.8-7.7) th/mm3 Lymph # (Auto) 1.5 (1.0-4.8) th/mm3 [place] # (Auto) 0.6 (0.0-0.9) th/mm3 Eos # (Auto) 0.1 (0.0-0.4) th/mm3 Baso # (Auto) 0.0 (0.0-0.2) th/mm3 WBC Differential . Differential Comment . PT 11.0 (9.8-11.6) sec INR 1.1 Ratio Sodium 138 (136-145) meq/L Potassium 3.2 L (3.5-5.1) meq/L Chloride 102 (98-107) meq/L Carbon Dioxide 30.2 (21.0-32.0) meq/L Anion Gap 6 (5-15) meq/L BUN 20 H (7-18) mg/dL Creatinine 1.30 (0.60-1.30) mg/dL Estimated GFR 53 L (>89) mL/min Random Glucose 147 H (74-106) mg/dL Calcium 8.8 (8.5-10.1) mg/dL Total Bilirubin 0.4 (0.2-1.0) mg/dL AST 17 (15-37) U/L ALT 18 (12-78) U/L Alkaline Phosphatase 82 (45-117) U/L Total Creatine Kinase (39-308) U/L Troponin I 0.11 H (0.02-0.05) ng/mL Total Protein 7.6 (6.4-8.2) g/dL Albumin 3.7 (3.4-5.0) g/dL TSH 3.450 (0.358-3.740) uIU/mL Urine Color (Yellw/Straw) Urine Clarity (Clear) Urine pH (5.0-8.5) Ur Specific [place] (1.002-1.035) Urine Protein (Neg-Trace) mg/dL Urine Glucose (UA) (Negative) mg/dL Urine Ketones (Negative) mg/dL Urine Occult Blood (Negative) Urine Nitrate (Negative) Urine Bilirubin (Negative) Urine Urobilinogen (Less than 2) mg/dL Ur Leukocyte Esterase (Negative) Urine RBC (0-3) /hpf Urine WBC (0-5) /hpf Ur Squamous Epith Cells (0-5) /hpf Micro UA Comment Urine Culture Comments 11/28/17 11/28/17 11/28/17 Range/Units 02:22 03:15 06:37 CBC w Diff WBC (4.0-11.0) th/mm3 RBC (4.50-5.90) mil/mm3 Hgb (13.0-17.0) gm/dL Hct (39.0-51.0) % MCV (80.0-100.0) fL MCH (27.0-34.0) pg MCHC (32.0-36.0) % RDW (11.6-17.2) % Plt Count (150-450) th/mm3 MPV (7.0-11.0) fL Neut % (Auto) (16.0-70.0) % Lymph % (Auto) (9.0-44.0) % [place] % (Auto) (0.0-8.0) % Eos % (Auto) (0.0-4.0) % Baso % (Auto) (0.0-2.0) % Neut # (Auto) (1.8-7.7) th/mm3 Lymph # (Auto) (1.0-4.8) th/mm3 [place] # (Auto) (0.0-0.9) th/mm3 Eos # (Auto) (0.0-0.4) th/mm3 Baso # (Auto) (0.0-0.2) th/mm3 WBC Differential Differential Comment PT (9.8-11.6) sec INR Ratio Sodium (136-145) meq/L Potassium (3.5-5.1) meq/L Chloride (98-107) meq/L Carbon Dioxide (21.0-32.0) meq/L Anion Gap (5-15) meq/L BUN (7-18) mg/dL Creatinine (0.60-1.30) mg/dL Estimated GFR (>89) mL/min Random Glucose (74-106) mg/dL Calcium (8.5-10.1) mg/dL Total Bilirubin (0.2-1.0) mg/dL AST (15-37) U/L ALT (12-78) U/L Alkaline Phosphatase (45-117) U/L Total Creatine Kinase 67 72 (39-308) U/L Troponin I 0.12 H 0.11 H (0.02-0.05) ng/mL Total Protein (6.4-8.2) g/dL Albumin (3.4-5.0) g/dL TSH (0.358-3.740) uIU/mL Urine Color Yellow (Yellw/Straw) Urine Clarity Clear (Clear) Urine pH 7.5 (5.0-8.5) Ur Specific [place] 1.010 (1.002-1.035) Urine Protein Trace (Neg-Trace) mg/dL Urine Glucose (UA) Negative (Negative) mg/dL Urine Ketones Trace (Negative) mg/dL Urine Occult Blood Negative (Negative) Urine Nitrate Negative (Negative) Urine Bilirubin Negative (Negative) Urine Urobilinogen 0.2 (Less than 2) mg/dL Ur Leukocyte Esterase Negative (Negative) Urine RBC 0-3 (0-3) /hpf Urine WBC 0-5 (0-5) /hpf Ur Squamous Epith Cells 0-5 (0-5) /hpf Micro UA Comment Culture not ind Urine Culture Comments Culture not ind Imaging Data Radiologist's impression: Chest X-Ray 11/28/17 00:22 CONCLUSION: No acute cardiopulmonary process to explain current clinical symptoms. Head CT 11/28/17 00:22 CONCLUSION: Negative exam. Head MRI 11/28/17 08:22 CONCLUSION: 1. Stable appearance with no acute hemorrhage, mass or infarction. Discharge Plan Discharge Disposition Patient Disposition: 30 Still Patient Discharge Condition Condition: Stable Discharge Order Discharge Orders: Discharge Order (Routine); Ordered 11/28/17 Ordered By: Trae Romano Physicians Team ED Provider: Alex Fernando Primary Care Provider: Gisela Keller Attending Provider: Trae Romano Other Providers: Sravan Coffey Status ED Status: Left Department Discharge Information Discharge Date/Time: 11/28/17 03:08
[2017-11-28 02:33] LABS: Bilirubin,Urine Negative (Negative); Clarity,Urine Clear (Clear); Color,Urine Yellow (Yellw/Straw); Glucose,Urine (UA) Negative (Negative); Leukocyte Esterase,Urine Negative (Negative); Nitrite,Urine Negative (Negative); PH,Urine 7.5 (5.0-8.5); Urobilinogen,Urine 0.2 mg/dL (Less than 2)
[2017-11-28 02:51] LABS: RBC,Urine 0-3 /hpf (0-3); Squamous Epithelial Cell,Urine 0-5 /hpf (0-5); WBC,Urine 0-5 /hpf (0-5)
[2017-11-28 03:40] LABS: Troponin I 0.12 ng/mL (0.02-0.05)
[2017-11-28] MEDS ORDERED: Potassium Chloride 25 MEQ Effervescent Tablet PO ONE (06:33)
--- NOTE | 2017-11-28 07:01 | MB ---
cc: Leopoldo Guerra MD, Alan S MD Marrese,Gisela Coelho,Beck Dupont MD DATE: 11/28/2017 I reviewed outside and prior records. HISTORY OF PRESENT ILLNESS: The patient is a 77-year-old gentleman I am seeing for dizziness. The patient had a catheterization done in August of this year for vague symptoms with a mildly elevated troponin. He had normal LV function and coronary arteries. He had a [employer] pacemaker placed for symptomatic bradycardia and he does have a bifascicular block, which is intermittent. He has had ablation of an atrial fibrillation and flutter previously. PAST MEDICAL HISTORY: His past medical history is also remarkable for hypertension, hyperlipidemia, hypothyroidism and prediabetes. The patient has significant hearing issues with fluid in his ears. Occasionally, he will get minimally lightheaded if he rolls over. Yesterday evening, he had lied back in bed and then rolled over abruptly to kiss his . He developed severe nausea with balance issues lasting seconds. This resolved and has not recurred. He had no other neurologic symptoms. He is very active and has no congestive heart failure symptoms, chest pain, syncope, palpitations, CVA or claudication, DVT or pulmonary emboli. LAB WORK: He is mildly anemic with hematocrit 37.0. Potassium 3.2 and I have written for some repletion. Glucose elevated at 147, creatinine 1.3. Troponin 0.12, but he has had this previously. CPK normal at 67. TSH normal. Urinalysis negative. MEDICATIONS PRIOR TO ADMISSION: 1. Amlodipine. 2. Atorvastatin. 3. Carvedilol. 4. Diovan. 5. Eliquis. 6. Hydrochlorothiazide. 7. Synthroid. SOCIAL HISTORY: The patient is , former smoker and occasionally drinks. REVIEW OF SYSTEMS: Remarkable for hearing loss along with some decreased sensation on the bottom of his feet from running. ALLERGIES: NONE. FAMILY HISTORY: Noncontributory. PHYSICAL EXAMINATION: GENERAL: The patient is afebrile and vital signs are stable. He is intermittently hypertensive. He is alert and oriented x 3. HEENT: There are no xanthelasma and oropharyngeal mucosa normal. CHEST: Clear. JVD normal. HEART: S1, S2. No murmurs or gallops. ABDOMEN: Benign. EXTREMITIES: Show no cyanosis, clubbing, or edema. Pulses 2/2 throughout without bruits. He is not ambulated. DIAGNOSTIC DATA: Telemetry has a lot of artifact which shows a ventricular paced rhythm. EKG appeared to show sinus rhythm with a ventricular demand pacemaker. PROBLEMS: 1. Dizziness - This occurred when he lied back and rolled all over and this does appear to be a positional vertigo. It was transient. The patient noted that his Fitbit showed a normal heart rate at that time. 2. Elevated troponin - He has no symptoms and has had this before with negative catheterization. 3. Hypokalemia. 4. Hypertension. 5. Hyperlipidemia. 6. Hypothyroidism. 7. Permanent pacemaker. RECOMMENDATIONS: 1. I would ask that the primary service start his home medications. He will need potassium supplementation. 2. We will have my office contact the [employer] pacemaker rep to make sure there were no significant arrhythmias. 3. Would recommend to the primary service neurology consultation as this does appear to be positional vertigo. 4. With a lack of chest pain and previously elevated troponin with negative catheterization, I would not pursue further cardiac workup. 5. Continue home medications. 6. We will follow. All questions were answered. MD KEVIN Vasquez/DL , 06:41 AM , 07:00 AM
[2017-11-28 07:13] LABS: Troponin I 0.11 ng/mL (0.02-0.05)
[2017-11-28] MEDS ORDERED: Senna/Docusate Sodium 8.6/50 MG Tablet PO SCH (09:00)
--- NOTE | 2017-11-28 09:50 | ECG ---
Date Performed: 11/28/2017 Time Performed: 06:17:34 PTAGE: 77 years EKG: ELECTRONIC VENTRICULAR PACEMAKER ABNORMAL RHYTHM ECG PREVIOUS TRACING : 11/28/2017 03.15 DOCTOR: Darvin Hodges Interpretating Date/Time 11/28/2017 09:48:21
--- NOTE | 2017-11-28 10:00 | ECG ---
Date Performed: 11/28/2017 Time Performed: 03:15:40 PTAGE: 77 years EKG: ELECTRONIC VENTRICULAR PACEMAKER PVCs in trigeminy pattern ABNORMAL ECG PREVIOUS TRACING : 08/18/2017 12.50 DOCTOR: Darvin Hodges Interpretating Date/Time 11/28/2017 09:59:41
--- NOTE | 2017-11-28 10:02 | ECG ---
Date Performed: 11/28/2017 Time Performed: 00:53:02 PTAGE: 77 years EKG: ELECTRONIC VENTRICULAR PACEMAKER PVCs in trigeminy PREVIOUS TRACING : 08/18/2017 12.50 DOCTOR: Darvin Hodges Interpretating Date/Time 11/28/2017 10:00:57
--- NOTE | 2017-11-28 10:52 | MR ---
EXAM DATE: 11/28/2017 10:44 AM EDT AGE/SEX: 77 years / Male INDICATIONS: CVA. Dizziness. CLINICAL DATA: This is the patient's initial encounter. Patient reports that signs and symptoms have been present for 2 days and indicates a pain score of 0/10. MEDICAL/SURGICAL HISTORY: Hypertension. Pacemaker. COMPARISON: [facility], MRI BRAIN W/O CONTRAST, 08/17/2017. . TECHNIQUE: Multiplanar, multisequence examination of the brain was performed without contrast. FINDINGS: Cerebrum: The ventricles are normal for age. No evidence of midline shift, mass lesion, hemorrhage or acute infarction. No extraaxial fluid collections are seen. The pituitary gland and suprasellar cistern are normal in configuration. White Matter: No significant signal abnormalities are seen in the white matter. Posterior Fossa: The cerebellum and brainstem are intact. The 4th ventricle is midline. The cerebel lopontine angle is unremarkable. The cerebellar tonsils are normal in position. Diffusion Imaging: No focal areas of restricted diffusion are seen. No evidence of acute infarction . Extracranial: The visualized portions of the orbits and paranasal sinuses are unremarkable. CONCLUSION: 1. Stable appearance with no acute hemorrhage, mass or infarction. Electronically signed by: Shon Reese MD 11/28/2017 10:51 AM EDT
--- NOTE | 2017-11-28 11:35 | P.HP ---
History of Present Illness Primary Care Physician: Gisela Keller MD History of Present Illness: 77-year-old male with a history of hypertension, cardiac, pacemaker placed last August. He experienced a protracted episode of dizziness while reading a book last night. He attempted to change positions but the dizziness does not subside. Did not improve with walking or relaxing his mind. At that point he called 911 and when EMS arrived he vomited copiously, regular vomit, no hematemesis. He denies any chest pain or shortness of breath associated with this. Upon arrival to the ER he was started on a vertigo workup which included CT of the brain, serial EKGs, troponin. His troponins are slightly elevated and cardiology was consulted for review. Per cardiology he underwent a cardiac catheterization around the time of his pacemaker which was all clear. He also had carotid arteries which were clear at that time. Ongoing workup. Included an MRI which was normal. He also had his pacemaker interrogated for possibility of arrhythmias at the time of the incident, but on interrogation there were no arrhythmias recorded. He is currently feeling fine and is requesting to go home and continue further workup as an outpatient. Review of Systems Constitutional: Denies anorexia, Denies body ache(s), Denies chills, Denies daytime sleepiness, Denies excessive sweating, Denies fatigue, Denies fever(s), Denies headache(s), Denies increased appetite, Denies lack of energy, Denies malaise, Denies night sweats, Denies weakness, Denies weight gain, Denies weight loss, Denies other Eyes: Denies blind spots, Denies blurry vision, Denies bulging eyes, Denies change in vision, Denies double vision, Denies discharge, Denies dry eyes, Denies floaters, Denies irritation, Denies itchy eyes, Denies loss of vision, Denies pain, Denies requires corrective lenses, Denies sensitivity to light, Denies other Ears, Nose, Mouth, and Throat: Denies abnormal hearing, Denies bleeding gums, Denies bad breath, Denies change in voice, Denies dental pain, Denies difficulty swallowing, Denies dizziness, Denies dry mouth, Denies ear discharge , Denies ear pain, Denies facial pain, Denies headache(s), Denies hearing loss, Denies hoarseness, Denies lip swelling, Denies nosebleed, Denies mouth lesions, Denies mouth pain, Denies nasal congestion, Denies nasal discharge, Denies nasal obstruction, Denies nasal trauma, Denies neck lump, Denies neck pain, Denies nose pain, Denies pain with swallowing, Denies poor balance, Denies post nasal drip, Denies ringing in the ears, Denies sinus pain, Denies sinus pressure , Denies sore throat, Denies throat swelling, Denies tongue swelling, Denies other Cardiovascular: Reports lightheadedness, Denies chest pain, Denies chest pain at rest, Denies chest pain with activity, Denies excessive sweating, Denies fainting, Denies fast heart rate, Denies foot swelling, Denies generalized swelling, Denies irregular heart rhythm, Denies leg pain with activity, Denies leg sores, Denies leg swelling, Denies radiating jaw, neck or arm pain, Denies rapid, pounding, or irregular heartbeat, Denies shortness of breath, Denies shortness of breath with activity, Denies shortness of breath when lying down, Denies shortness of breath causing sudden awakening, Denies slow heart rate, Denies other Respiratory: Denies change in phlegm color, Denies chest congestion, Denies cough, Denies coughing up blood, Denies excessive phlegm production, Denies pain on inspiration, Denies pain with cough, Denies shortness of breath, Denies shortness of breath with activity, Denies snoring, Denies stridor, Denies wheezing, Denies other Gastrointestinal: Denies abdominal pain, Denies belching, Denies black, tarry stools, Denies bloating, Denies bright, red blood in stools, Denies change in bowel habits, Denies constant urge to pass stool, Denies change in stools, Denies coffee ground vomit, Denies constipation, Denies cramping, Denies difficulty swallowing, Denies excessive passing of gas, Denies feeling full early, Denies heartburn, Denies incontinent of stools, Denies loose stools, Denies nausea, Denies pain with swallowing, Denies vomiting, Denies vomiting blood, Denies other Genitourinary: Denies blood in semen, Denies blood in urine, Denies decreased urination, Denies difficulty urinating, Denies difficulty with ejaculations, Denies erectile dysfunction, Denies genital lesions, Denies genital pain, Denies painful urination, Denies side pain, Denies frequent nighttime urination , Denies painful ejaculations, Denies penile discharge, Denies scrotal swelling , Denies testicle lump, Denies testicle pain, Denies urinary frequency, Denies urinary hesitancy, Denies urinary incontinence, Denies urinary urgency, Denies other Musculoskeletal: Denies abnormal walking, Denies back pain, Denies body aches, Denies decreased muscle mass, Denies deformity, Denies joint pain, Denies joint swelling, Denies limited joint movement, Denies loss of height, Denies muscle cramps, Denies muscle weakness, Denies neck pain, Denies numbness, Denies radiating pain into limb, Denies stiffness, Denies tingling, Denies other Neurologic: Reports dizziness, Denies abnormal hearing, Denies abnormal movements, Denies abnormal speech, Denies abnormal walking, Denies behavioral changes, Denies burning sensations, Denies confusion, Denies fainting, Denies frequent falls, Denies headache(s), Denies lack of coordination, Denies localized weakness, Denies loss of vision, Denies memory loss, Denies numbness, Denies other visual disturbances, Denies radiating pain, Denies restless legs, Denies convulsions, Denies seizure-like activity, Denies tingling, Denies tingling/numbness/burning sensations, Denies tremor(s), Denies unsteadiness, Denies weakness Psychiatric: Denies abnormal sleep pattern, Denies anxiety, Denies behavioral changes, Denies change in appetite, Denies change in sex drive, Denies confusion , Denies depression, Denies difficulty concentrating, Denies hearing things others do not hear, Denies hopelessness, Denies irritability, Denies lack of enjoyment, Denies memory loss, Denies mood swings, Denies panic attacks, Denies paranoia, Denies seeing things others do not see, Denies sensing things others do not sense, Denies tactile hallucinations, Denies thoughts of hurting/killing others, Denies thoughts of hurting/killing yourself, Denies other Endocrine: Denies cold intolerance, Denies excessive sweating, Denies flushing, Denies heat intolerance, Denies increased hunger, Denies increased thirst, Denies increased urination, Denies rapid, pounding, or irregular heartbeat, Denies other PMFSH - History History Provided By: Patient, Family Member - Medical History Medical History: Medical History (Last Reviewed 11/28/17 @ 07:48 by Reinaldo Velazquez) Hypertension Pacemaker Slow heart rate - Surgical History Surgical History: Surgical History (Last Reviewed 11/28/17 @ 07:48 by Reinaldo Velazquez) H/O colonoscopy History of cardiac cath - Tobacco History Second Hand Smoke Exposure: No Smoking Status: Former smoker - Alcohol History How Often Do You Have a Drink Containing Alcohol: Monthly or less - Substance Use History Substance History: No History of Abuse - Travel History Recent Travel Out of the Country Within the Last 8 Weeks: No - Immunization History Tetanus Immunization: Unsure Hx Influenza Vaccine This Season: Yes Medications and Allergies Active Medications: Active Medications Acetaminophen (Tylenol) 650 mg PO Q4H PRN PRN Reason: Temp > 100.4 Al Hydroxide/Mg Hydroxide (Milk Of Magnesia Liq) 30 ml PO Q12H PRN PRN Reason: Mild Constipation Bisacodyl (Dulcolax Supp) 10 mg RECTAL DAILY PRN PRN Reason: SEVERE CONSITIPATION Heparin Sodium (Porcine) (Heparin Inj) 5,000 units SQ Q8H [facility] Last Admin: 11/28/17 02:39 Dose: 5,000 units Lactulose (Lactulose Liq) 30 ml PO DAILY PRN PRN Reason: SEVERE CONSITIPATION Ondansetron HCl (Zofran Inj) 4 mg IV.PUSH Q6H PRN PRN Reason: NAUSEA OR VOMITING Senna/Docusate Sodium (Rachel-Colace) 1 tab PO BID [facility] Last Admin: 11/28/17 09:41 Dose: Not Given Sennosides (Senokot) 17.2 mg PO Q12H PRN PRN Reason: Moderate Constipation Temazepam (Restoril) 15 mg PO HS PRN PRN Reason: INSOMNIA Allergies Allergy/AdvReac Type Severity Reaction Status Date / Time No Known Allergies Allergy Verified 11/28/17 00:16 Home Medications Medication Instructions Recorded Confirmed Type amlodipine 10 mg PO DAILY 11/28/17 11/28/17 History apixaban [Eliquis] 5 mg PO BID 11/28/17 11/28/17 History atorvastatin 10 mg PO HS 11/28/17 11/28/17 History carvedilol 6.25 mg PO BID 11/28/17 11/28/17 History hydrochlorothiazide 25 mg PO DAILY 11/28/17 11/28/17 History levothyroxine 50 mcg PO DAILY 11/28/17 11/28/17 History valsartan 320 mg PO HS 11/28/17 11/28/17 History Exam Vital signs: Vital Signs 11/28/17 00:05 11/28/17 01:10 11/28/17 02:12 Temperature 97.6 F Pulse Rate 78 68 69 Respiratory Rate 20 18 18 Blood Pressure 163/82 H 143/76 H 144/73 H Pulse Oximetry 99 100 99 11/28/17 03:05 11/28/17 03:18 11/28/17 03:31 Temperature 97.1 F L Pulse Rate 68 77 Respiratory Rate 17 18 Blood Pressure 144/77 H 173/80 H Pulse Oximetry 98 98 11/28/17 04:19 11/28/17 07:15 11/28/17 08:00 Temperature 96.8 F L Pulse Rate 64 64 Respiratory Rate 18 Blood Pressure 156/72 H 157/74 H Pulse Oximetry 95 95 Intake & Output 11/27/17 11/28/17 11/28/17 18:59 06:59 18:59 Intake Total 1000 / 1000 Output Total 450 / 450 Balance 550 / 550 Weight 95.6 kg Intake: IV 1000 / 1000 NS Inj 1,000 ML @ Wide Open IV. 1000 / 1000 SIG BOLUS ONE Rx#:[id number] Output: Urine 450 / 450 Other: # Voids 1 Narrative: GENERAL: Alert and oriented 3, no acute distress SKIN: Warm and dry. HEAD: Atraumatic. Normocephalic. EYES: Pupils equal and round. No scleral icterus. No injection or drainage. ENT: No nasal bleeding or discharge. Mucous membranes pink and moist. NECK: Trachea midline. No JVD. CARDIOVASCULAR: Regular rate and rhythm. RESPIRATORY: No accessory muscle use. Clear to auscultation. Breath sounds equal bilaterally. GASTROINTESTINAL: Abdomen soft, non-tender, nondistended. Hepatic and splenic margins not palpable. MUSCULOSKELETAL: Extremities without clubbing, cyanosis, or edema. No obvious deformities. NEUROLOGICAL: Awake and alert. No obvious cranial nerve deficits. Motor grossly within normal limits. Five out of 5 muscle strength in the arms and legs. Normal speech. PSYCHIATRIC: Appropriate mood and affect; insight and judgment normal. Results - Labs CBC & Chem 7: 11/28/17 00:30 11/28/17 00:30 Labs: Laboratory Results - last 24 hr 11/28/17 11/28/17 11/28/17 00:30 00:30 00:30 CBC w Diff Auto diff final WBC 5.0 RBC 4.12 L Hgb 12.7 L Hct 37.0 L MCV 89.7 MCH 30.8 MCHC 34.3 RDW 13.2 Plt Count 207 MPV 9.2 Neut % (Auto) 57.0 Lymph % (Auto) 29.5 [place] % (Auto) 11.1 H Eos % (Auto) 1.9 Baso % (Auto) 0.5 Neut # (Auto) 2.8 Lymph # (Auto) 1.5 [place] # (Auto) 0.6 Eos # (Auto) 0.1 Baso # (Auto) 0.0 WBC Differential . Differential Comment . PT 11.0 INR 1.1 Sodium 138 Potassium 3.2 L Chloride 102 Carbon Dioxide 30.2 Anion Gap 6 BUN 20 H Creatinine 1.30 Estimated GFR 53 L Random Glucose 147 H Calcium 8.8 Total Bilirubin 0.4 AST 17 ALT 18 Alkaline Phosphatase 82 Total Creatine Kinase Troponin I 0.11 H Total Protein 7.6 Albumin 3.7 TSH 3.450 Urine Color Urine Clarity Urine pH Ur Specific [place] Urine Protein Urine Glucose (UA) Urine Ketones Urine Occult Blood Urine Nitrate Urine Bilirubin Urine Urobilinogen Ur Leukocyte Esterase Urine RBC Urine WBC Ur Squamous Epith Cells Micro UA Comment Urine Culture Comments 11/28/17 11/28/17 11/28/17 02:22 03:15 06:37 CBC w Diff WBC RBC Hgb Hct MCV MCH MCHC RDW Plt Count MPV Neut % (Auto) Lymph % (Auto) [place] % (Auto) Eos % (Auto) Baso % (Auto) Neut # (Auto) Lymph # (Auto) [place] # (Auto) Eos # (Auto) Baso # (Auto) WBC Differential Differential Comment PT INR Sodium Potassium Chloride Carbon Dioxide Anion Gap BUN Creatinine Estimated GFR Random Glucose Calcium Total Bilirubin AST ALT Alkaline Phosphatase Total Creatine Kinase 67 72 Troponin I 0.12 H 0.11 H Total Protein Albumin TSH Urine Color Yellow Urine Clarity Clear Urine pH 7.5 Ur Specific [place] 1.010 Urine Protein Trace Urine Glucose (UA) Negative Urine Ketones Trace Urine Occult Blood Negative Urine Nitrate Negative Urine Bilirubin Negative Urine Urobilinogen 0.2 Ur Leukocyte Esterase Negative Urine RBC 0-3 Urine WBC 0-5 Ur Squamous Epith Cells 0-5 Micro UA Comment Culture not ind Urine Culture Comments Culture not ind - Imaging Impressions Chest X-Ray 11/28/17 00:22 CONCLUSION: No acute cardiopulmonary process to explain current clinical symptoms. Head CT 11/28/17 00:22 CONCLUSION: Negative exam. Head MRI 11/28/17 08:22 CONCLUSION: 1. Stable appearance with no acute hemorrhage, mass or infarction. Caprini VTE Risk Assessment Caprini VTE Risk Assessment: Moderate/High Risk (score >= 2) Caprini Risk Assessment Model: Point Value = 1 Point Value = 2 Point Value = 3 Point Value = 5 Age 41-60 Minor surgery BMI > 25 kg/m2 Swollen legs Varicose veins or History of unexplained or recurrent spontaneous Oral contraceptives or hormone replacement Sepsis (< 1 month) Serious lung disease, including pneumonia (< 1 month) Abnormal pulmonary function Acute myocardial infarction Congestive heart failure (< 1 month) History of inflammatory bowel disease Medical patient at bed rest Age 61-74 Arthroscopic surgery Major open surgery (> 45 min) Laparoscopic surgery (> 45 min) Malignancy Confined to bed (> 72 hours) Immobilizing plaster cast Central venous access Age >= 75 History of VTE Family history of VTE Factor V Leiden Prothrombin [id number] Lupus anticoagulant Anticardiolipin antibodies Elevated serum homocysteine Heparin-induced thrombocytopenia Other congenital or acquired thrombophilia Stroke (< 1 month) Elective arthroplasty Hip, pelvis, or leg fracture Acute spinal cord injury (< 1 month) Prophylaxis Regimen: Total Risk Factor Score Risk Level Prophylaxis Regimen 0-1 Low Early ambulation 2 Moderate Order ONE of the following: *Sequential Compression Device (SCD) *Heparin 5000 units SQ BID 3-4 Higher Order ONE of the following medications: *Heparin 5000 units SQ TID *Enoxaparin/Lovenox 40 mg SQ daily (WT < 150 kg, CrCl > 30 mL/min) *Enoxaparin/Lovenox 30 mg SQ daily (WT < 150 kg, CrCl > 10-29 mL/min) *Enoxaparin/Lovenox 30 mg SQ BID (WT < 150 kg, CrCl > 30 mL/min) AND/OR *Sequential Compression Device (SCD) 5 or more Highest Order ONE of the following medications: *Heparin 5000 units SQ TID (Preferred with Epidurals) *Enoxaparin/Lovenox 40 mg SQ daily (WT < 150 kg, CrCl > 30 mL/min) *Enoxaparin/Lovenox 30 mg SQ daily (WT < 150 kg, CrCl > 10-29 mL/min) *Enoxaparin/Lovenox 30 mg SQ BID (WT < 150 kg, CrCl > 30 mL/min) AND *Sequential Compression Device (SCD) Assessment and Plan - Plan Vertigo Closest description is seasickness while at rest. He has a history of a buildup of fluid and pressure in his middle ear. Cardiac causes were essentially ruled out by recent negative carotid, negative interrogation of pacemaker, negative coronary angiogram last August Stroke as a cause was ruled out by a negative CT and negative MRI Although other causes may be present, patient would like to continue workup as outpatient He has follow-up arranged with neurology this week Recommend antihistamines for approximately 3 days to reduce middle ear fluid level and in her ear vertigo Elevated troponin Reviewed by provider network mgr who is not concerned at this time Coronary angiogram was clear in August 2017 Appreciate cardiology consult DVT prophylaxis Heparin
--- NOTE | 2017-11-28 11:37 | P.DS ---
Date of admission: 11/28/17 02:06 Primary care physician: Gisela Keller MD Brief History from admission: 77-year-old male with a history of hypertension, cardiac, pacemaker placed last August. He experienced a protracted episode of dizziness while reading a book last night. He attempted to change positions but the dizziness does not subside. Did not improve with walking or relaxing his mind. At that point he called 911 and when EMS arrived he vomited copiously, regular vomit, no hematemesis. He denies any chest pain or shortness of breath associated with this. Upon arrival to the ER he was started on a vertigo workup which included CT of the brain, serial EKGs, troponin. His troponins are slightly elevated and cardiology was consulted for review. Per cardiology he underwent a cardiac catheterization around the time of his pacemaker which was all clear. He also had carotid arteries which were clear at that time. Ongoing workup. Included an MRI which was normal. He also had his pacemaker interrogated for possibility of arrhythmias at the time of the incident, but on interrogation there were no arrhythmias recorded. He is currently feeling fine and is requesting to go home and continue further workup as an outpatient. DS: Summary Hospital Course: 77-year-old male who presented with vertigo. His workup included cardiac review of his pacemaker which when interrogated showed no episodes of arrhythmia. He had a negative coronary angiogram last August. His elevated cardiac enzymes were of no concern according to cardiology. Workup for stroke included a negative CT of the brain and a negative MRI of the brain. This leaves rare causes which will be worked up by neurologist. He has a neurology appointment being scheduled for this week. Most common cause is positional vertigo which is consistent with his history of fluid buildup in the middle ear and history of allergies. I recommended he take Claritin in addition to his Flonase for the next 3 days to help alleviate the symptoms and reduce recurrence. He would like to go home now and he is stable for discharge. - Time Spent with Patient Total time spent providing and/or coordinating discharge services: - Quality: VTE Deep Vein Thrombosis/Pulmonary Embolism Present on Admission: Yes Exam Vital signs: Vital Signs 11/28/17 00:05 11/28/17 01:10 11/28/17 02:12 Temperature 97.6 F Pulse Rate 78 68 69 Respiratory Rate 20 18 18 Blood Pressure 163/82 H 143/76 H 144/73 H Pulse Oximetry 99 100 99 11/28/17 03:05 11/28/17 03:18 11/28/17 03:31 Temperature 97.1 F L Pulse Rate 68 77 Respiratory Rate 17 18 Blood Pressure 144/77 H 173/80 H Pulse Oximetry 98 98 11/28/17 04:19 11/28/17 07:15 11/28/17 08:00 Temperature 96.8 F L Pulse Rate 64 64 Respiratory Rate 18 Blood Pressure 156/72 H 157/74 H Pulse Oximetry 95 95 Intake & Output 11/27/17 11/28/17 11/28/17 18:59 06:59 18:59 Intake Total 1000 / 1000 Output Total 450 / 450 Balance 550 / 550 Weight 95.6 kg Intake: IV 1000 / 1000 NS Inj 1,000 ML @ Wide Open IV. 1000 / 1000 SIG BOLUS ONE Rx#:[id number] Output: Urine 450 / 450 Other: # Voids 1 Results Procedures completed during hospitalization: none Labs on day of discharge: Labs from last 24 hours 11/28/17 11/28/17 11/28/17 06:37 03:15 02:22 CBC w Diff WBC RBC Hgb Hct MCV MCH MCHC RDW Plt Count MPV Neut % (Auto) Lymph % (Auto) [place] % (Auto) Eos % (Auto) Baso % (Auto) Neut # (Auto) Lymph # (Auto) [place] # (Auto) Eos # (Auto) Baso # (Auto) WBC Differential Differential Comment PT INR Sodium Potassium Chloride Carbon Dioxide Anion Gap BUN Creatinine Estimated GFR Random Glucose Calcium Total Bilirubin AST ALT Alkaline Phosphatase Total Creatine Kinase 72 67 Troponin I 0.11 H 0.12 H Total Protein Albumin TSH Urine Color Yellow Urine Clarity Clear Urine pH 7.5 Ur Specific [place] 1.010 Urine Protein Trace Urine Glucose (UA) Negative Urine Ketones Trace Urine Occult Blood Negative Urine Nitrate Negative Urine Bilirubin Negative Urine Urobilinogen 0.2 Ur Leukocyte Esterase Negative Urine RBC 0-3 Urine WBC 0-5 Ur Squamous Epith Cells 0-5 Micro UA Comment Culture not ind Urine Culture Comments Culture not ind 11/28/17 11/28/17 11/28/17 00:30 00:30 00:30 CBC w Diff Auto diff final WBC 5.0 RBC 4.12 L Hgb 12.7 L Hct 37.0 L MCV 89.7 MCH 30.8 MCHC 34.3 RDW 13.2 Plt Count 207 MPV 9.2 Neut % (Auto) 57.0 Lymph % (Auto) 29.5 [place] % (Auto) 11.1 H Eos % (Auto) 1.9 Baso % (Auto) 0.5 Neut # (Auto) 2.8 Lymph # (Auto) 1.5 [place] # (Auto) 0.6 Eos # (Auto) 0.1 Baso # (Auto) 0.0 WBC Differential . Differential Comment . PT 11.0 INR 1.1 Sodium 138 Potassium 3.2 L Chloride 102 Carbon Dioxide 30.2 Anion Gap 6 BUN 20 H Creatinine 1.30 Estimated GFR 53 L Random Glucose 147 H Calcium 8.8 Total Bilirubin 0.4 AST 17 ALT 18 Alkaline Phosphatase 82 Total Creatine Kinase Troponin I 0.11 H Total Protein 7.6 Albumin 3.7 TSH 3.450 Urine Color Urine Clarity Urine pH Ur Specific [place] Urine Protein Urine Glucose (UA) Urine Ketones Urine Occult Blood Urine Nitrate Urine Bilirubin Urine Urobilinogen Ur Leukocyte Esterase Urine RBC Urine WBC Ur Squamous Epith Cells Micro UA Comment Urine Culture Comments - Impressions ITS Impressions Chest X-Ray 11/28/17 00:22 CONCLUSION: No acute cardiopulmonary process to explain current clinical symptoms. Head CT 11/28/17 00:22 CONCLUSION: Negative exam. Head MRI 11/28/17 08:22 CONCLUSION: 1. Stable appearance with no acute hemorrhage, mass or infarction. Discharge Plan - Discharge Disposition Patient Disposition: 01 Discharge Home - Discharge Condition Condition: Stable - Discharge Order Discharge Orders: Discharge Order (Routine); Ordered 11/28/17 Ordered By: Trae Romano - Physicians Team Primary Care Provider: Gisela Keller Attending Provider: Trae Romano Other Providers: Sravan Coffey DO
== END 2017-11-28 11:53 | disposition home or self-care (01) ==
LOC: PHED 00:02 → PHEDA 00:02 → PH3 00:02
PROVIDERS: ADMIT Family Medicine; ATTEND Family Medicine